=== PATIENT | male | born 1940 | race Caucasian/White ===

== ENCOUNTER 2022-09-14 20:42 | Inpatient (IN) | payer MEDICARE ==
[2022-09-14] MEDS ORDERED: MORPHINE SULFATE 4 MG/ML SYRINGE IVP STA (21:05)
[2022-09-14 21:49] LABS: Basophils % (A) 1 %; Eosinophils # (A) 0.4 k/uL (0-0.7); Eosinophils % (A) 7 %; HCT 39.6 % (39.0-53.0); HGB 13.6 gm/dL (13.0-17.5); Lymphocytes # (A) 0.9 k/uL (1.0-4.8); Lymphocytes % (A) 13 %; MCH 32.3 pg (25.0-35.0); MCHC 34.5 g/dL (31.0-37.0); MCV 93.9 fL (80.0-100.0); Mean Platelet Volume 8.3; Monocytes # (A) 0.3 k/uL (0-1.0); Monocytes % (A) 5 %; Neutrophils # (A) 4.6 k/uL (1.3-7.7); Neutrophils % (A) 72 %; Platelet Count 157 k/uL (150-450); RBC 4.22 m/uL (4.30-5.90); RDW 12.9 % (11.5-15.5); WBC 6.3 k/uL (3.8-10.6)
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
[2022-09-14 21:59] LABS: INR 1.1 (<1.2); Partial Thromboplastin Time 26.9 sec (22.0-30.0); Prothrombin Time 11.4 sec (9.0-12.0)
[2022-09-14 22:03] LABS: Albumin 4.3 g/dL (3.5-5.0); Calcium 9.2 mg/dL (8.4-10.2); Potassium 3.8 mmol/L (3.5-5.1); Total Bilirubin 0.6 mg/dL (0.2-1.3); Total Protein 7.4 g/dL (6.3-8.2)
[2022-09-14] MEDS ORDERED: HYDROmorphone 0.5 MG/0.5 ML SYRINGE IVP STA (22:05)
--- NOTE | 2022-09-14 22:14 | XR ---
EXAMINATION TYPE: XR pelvis AP view DATE OF EXAM: 09/14/2022 COMPARISON: None HISTORY: Fall, pain TECHNIQUE: AP pelvis FINDINGS: There is a fracture through the right femoral neck. Femoral head articulates with the aceta bulum Pelvis otherwise appears intact. Sacroiliac joints and symphysis pubis are normal. Left femoral head articulates with the acetabulum. Vascular calcification is noted. IMPRESSION: 1. Fracture of the right femoral neck.
--- NOTE | 2022-09-14 22:15 | XR ---
EXAMINATION TYPE: XR chest 1V portable DATE OF EXAM: 09/14/2022 COMPARISON: None INDICATION: Trauma, pain TECHNIQUE: Single frontal view of the chest is obtained. Patient is rotated to the right. FINDINGS: The heart size is normal. The pulmonary vasculature is normal. There may be some mild platelike atelectasis at the left base. IMPRESSION: 1. Suggestion of some mild platelike atelectasis left lung base.
--- NOTE | 2022-09-14 22:17 | XR ---
EXAMINATION TYPE: XR femur RT DATE OF EXAM: 09/14/2022 COMPARISON: None HISTORY: Fall, pain TECHNIQUE: 2 view right femur FINDINGS: There is a right femoral neck fracture. Femoral head articulates with the acetabulum. Remai nder of the visualized right femur appears intact. Knee joint space has limited evaluation. IMPRESSION: 1. Right femoral neck fracture.
--- NOTE | 2022-09-14 22:55 | CT ---
EXAMINATION TYPE: CT brain jayleen wo con DATE OF EXAM: 09/14/2022 COMPARISON: None HISTORY: fall CT DLP: 1636 mGycm, Automated exposure control for dose reduction was used. CONTRAST: Patient injected with 0 mL of Isovue 300. CT of the brain is performed utilizing 3 mm thick sections through the posterior fossa and 3 mm thick sections through the remaining calvarium. Study is performed within 24 hours of arrival to the hospital. No abnormal hyperdensity is present to suggest an acute intracranial hemorrhage. No mass lesion is evident. There is mild diminished density within the subcortical limbic region. Series 2034 image 26. Ventricles and sulci are prominent for the patient age. There is prominence of the extra-axial space along the right side. Subdural hygroma may be present. Paranasal sinuses and mastoid air cells within the [id number] are clear. IMPRESSIONS: 1. Several hypodensities within the subcortical limbic region on the left. This is nonspecific. Chron ic ischemic change or developing acute ischemia are within the differential. Correlate with the patie nt's clinical symptoms. CT cervical spine. COMPARISON: None CT of the cervical spine is performed in the axial plane at 2 mm thick sections. Reconstructed image s in the coronal, and sagittal plane are reviewed on the computer. No acute fractures are evident. Note is made of spina bifida occulta of C1 posteriorly. Vertebral body alignment is normal. Mild narrowing of disc height is noted at C3-4. Vertebral body heights are preserved. No spinal canal stenosis is evident. No neural foraminal stenosis is evident. IMPRESSIONS: 1. Mild disc space narrowing C3-4
--- NOTE | 2022-09-14 22:57 | CT ---
EXAMINATION TYPE: CT hip RT wo con DATE OF EXAM: 09/14/2022 COMPARISON: Right hip x-ray 09/14/2022 HISTORY: pain from fall CT DLP: 881 mGycm Automated exposure control for dose reduction was used. Contrast: None Technique: Axial images 3 mm thick sections. Reconstructed images in the coronal and sagittal planes. FINDINGS: There is a fracture of the right femoral neck. There is some rotation of the femur. No additional fra ctures are evident. Pelvis appears intact. Sacroiliac joints appear normal. Note is made of degenerat mickey changes at the L5-S1 disc space. IMPRESSION: 1. RIGHT FEMORAL NECK FRACTURE.
[2022-09-14] MEDS ORDERED: NALOXONE 0.4 MG/ML 1 ML VIAL IV PRN (23:14)
[2022-09-14] MEDS ORDERED: ACETAMINOPHEN TAB 325 MG TAB PO PRN (23:14)
[2022-09-14] MEDS ORDERED: ONDANSETRON 4 MG/2 ML VIAL IVP PRN (23:14)
[2022-09-14] MEDS: SODIUM CHLORIDE 0.9% 1,000 ML IV SCH (23:41)
[2022-09-14] MEDS: HYDROmorphone 1 MG/ML 1 ML SYRINGE IVP PRN (23:41)
[2022-09-15] MEDS: HYDROmorphone 1 MG/ML 1 ML SYRINGE IVP PRN ×3 (02:04→09:02)
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
[2022-09-15] MEDS ORDERED: TRANEXAMIC ACID IN NACL,ISO-OS 1,000 MG in SALINE 1 100ML.BAG IVPB PRN ×2 (05:00)
[2022-09-15 06:21] LABS: Glucose,Whole Blood 120 mg/dL (70-110)
--- NOTE | 2022-09-15 09:18 | P.HPOR ---
History of Present Illness H&P Date: 09/15/22 The patient is a very pleasant 82-year-old male who is admitted under my care with a right hip fracture. The patient has multiple medical problems including atrial fibrillation and COPD. The patient states that he lost his balance yesterday and fell onto his right side. He had immediate pain in the right hip and unable to ambulate. He was seen in the emergency department where x-rays showed a displaced femoral neck fracture. At the time of my evaluation this morning the patient is complaining of isolated pain in his right hip and spasms down into Thigh. At baseline the patient uses a walker and lives with his son-in-law. Past Medical History Past Medical History: Atrial Fibrillation, Blood Disorder, COPD, Deep Vein Thrombosis (DVT), Myocardial Infarction ([place]), Sleep Apnea/CPAP/BIPAP Additional Past Medical History / Comment(s): hernia Last Myocardial Infarction Date:: late 60s History of Any Multi-Drug Resistant Organisms: None Reported Past Surgical History: Ear Surgery, Heart Catheterization Past Anesthesia/Blood Transfusion Reactions: No Reported Reaction Smoking Status: Former smoker Past Alcohol Use History: Occasional Past Drug Use History: Marijuana - Past Family History Father Family Medical History: Hyperlipidemia Medications and Allergies Allergies Allergy/AdvReac Type Severity Reaction Status Date / Time No Known Allergies Allergy Verified 09/14/22 21:13 Physical Examination The patient is resting comfortably in his bed. He is alert and able to answer questions. His head is normocephalic and atraumatic. His abdomen is obese and nontender. He demonstrates nonlabored breathing with symmetric chest expansion. Both upper extremities are without deformity or nontender. The left lower extremity is nontender and without deformity. A focused exam of the right lower Was conducted. On inspection the leg is shortened and externally rotated. There are no skin lesions or scars over the anterior aspect of the right hip. The thigh and calf are soft. There is pain with any attempted passive range of motion of the right hip. There is no tenderness in the knee or foot. Sensation is intact to light touch in the right foot. Results X-rays of the pelvis and right hip show a displaced subcapital femoral neck fracture. - Labs Labs: Abnormal Lab Results - Last 24 Hours (Table) 09/14/22 09/14/22 09/15/22 Range/Units 21:16 21:25 06:20 RBC 4.22 L (4.30-5.90) m/uL Lymphocytes # 0.9 L (1.0-4.8) k/uL BUN 31 H (9-20) mg/dL Creatinine 1.86 H (0.66-1.25) mg/dL POC Glucose (mg/dL) 120 H (70-110) mg/dL H & H 09/14/22 Range/Units 21:25 Hgb 13.6 (13.0-17.5) gm/dL Hct 39.6 (39.0-53.0) % Coagulation 09/14/22 Range/Units 21:16 INR 1.1 (<1.2) Result Diagrams: 09/14/22 21:25 09/14/22 21:16 Assessment and Plan Assessment: Displaced right subcapital femoral neck fracture COPD Atrial fibrillation Plan: A long discussion with this patient and his injury and treatment. He has a displaced subcapital femoral neck fracture and my recommendation was a cemented hip hemiarthroplasty. We discussed that this would allow early mobilization and hopefully return to his preoperative baseline and to try status. We discussed the potential risks and complications of this at length of which he is aware. We will plan on surgery later this afternoon as he is already cleared by internal medicine. He is to remain nothing by mouth and bedrest until surgery. Time with Patient: Greater than 30
[2022-09-15] MEDS ORDERED: ROPIVACAINE/EPI/CLONIDINE/KET 50 ML SYRINGE MISCELLANE PRN (09:53)
[2022-09-15] MEDS ORDERED: TRANEXAMIC ACID IN NACL,ISO-OS 100 ML IVPB ONE (09:53)
[2022-09-15] MEDS ORDERED: TRANEXAMIC ACID 1,000 MG in SODIUM CHLORIDE 0.9% 100 ML IVPB ONE (09:54)
--- NOTE | 2022-09-15 13:25 | P.CNNES ---
History of Present Illness Consult date: 09/15/22 Requesting physician: Parth Campuzano Reason for Consult: rule out ischemic changes, acute vs chronic History of Present Illness: This is an 82-year-old gentleman with history of strokes, atrial fibrillation on Xarelto, COPD, obstructive sleep apnea on CPAP who presented emergency department department because of fall. Seems that yesterday the patient was standing on the golf cart and he stated that he fell on event and fell backward. He does not believe he lost consciousness. He he thinks he will he wanted to turn to the left while on the cart but he felt possibly his legs were weak and he fell backwards and as a result has had hitting his right hip. Patient denies any history of seizures. Again he did not feel he lost consciousness but he was not sure. He did have history of strokes in the past and he had a stroke in 1970s and about 5 years ago. As a result will fall patient had the right femoral neck fracture. Some of the workup to this hospital visit consisted of: Initial serum glucose is 99. Creatinine is 1.86. CT of the head is reported as several hypodensity within the subcortical limp region of the left. This is nonspecific. Chronic ischemic changes or developing acute ischemia are within differential. Correlate with the patient's clinical symptoms. I personally reviewed the CT of the head and the patient has mild hypodensity over left ear insular region and seems suspicious for acute to subacute stroke. CT cervical spine was reported as mild disc space narrowing at C3-C4. Review of Systems Review of system: The 12 point system was reviewed and apparent positive and negative per HPI. Past Medical History Past Medical History: Atrial Fibrillation, Blood Disorder, COPD, Deep Vein Thrombosis (DVT), Myocardial Infarction ([place]), Sleep Apnea/CPAP/BIPAP Additional Past Medical History / Comment(s): hernia Last Myocardial Infarction Date:: late 60s History of Any Multi-Drug Resistant Organisms: None Reported Past Surgical History: Ear Surgery, Heart Catheterization Past Anesthesia/Blood Transfusion Reactions: No Reported Reaction Smoking Status: Former smoker Past Alcohol Use History: Occasional Past Drug Use History: Marijuana - Past Family History Father Family Medical History: Hyperlipidemia Medications and Allergies Allergies Allergy/AdvReac Type Severity Reaction Status Date / Time No Known Allergies Allergy Verified 09/14/22 21:13 Physical Examination - Vital Signs Vital Signs: Vital Signs Temp Pulse Pulse Resp BP BP Pulse Ox 09/15/22 08:31 91 L 09/15/22 07:15 98.6 F 56 L 18 102/61 96 09/15/22 01:52 97.7 F 71 20 156/68 97 09/15/22 00:36 97.9 F 76 24 160/84 95 09/14/22 20:48 98.2 F 70 22 158/82 100 Intake and Output 09/14/22 09/15/22 09/15/22 22:59 06:59 14:59 Intake Total 525 Output Total 300 Balance 225 Intake: Intake, IV Titration 525 Amount Sodium Chloride 0.9% 1, 525 000 ml @ 75 mls/hr IV . [id number] [facility] Rx#:[id number] Output: Urine 300 Uretheral (Henning) 300 Other: Weight 94.347 kg 94.347 kg GENERAL: The patient is lying in bed and is not in acute distress. CHEST: No edema in extremities. LUNG: Is on CPAP machine. Not labored breathing. NEUROLOGICAL: Higher mental function: The patient is awake, alert, oriented to self, place and time. Patient is following commands. No aphasia and no neglect. Cranial nerves: The pupils are round, equal and reactive to light. Visual mag[place] are full to confrontation throughout. Extraocular movement is intact no nystagmus is noted. Facial sensation is normal to touch throughout. The facial strength is normal throughout. Hearing is mildly decreasedl bilaterally to hand rub. Tongue is midline and moved [id number] without any difficulty. No dysa rthria is noted. Shoulder shrug is normal bilaterally. Motor: The strength is 5 over 5 throughout. uppers while left is unable to assess because of pain especially right lower and has fracture right hip region. But is wiggling left toes. Normal tone and bulk. Cerebellum: Normal finger to nose bilaterally. Sensation: Sensation is normal to touch throughout. Reflexes (right/left): 2+ uppers but lowers unable to assess because of pain. Plantars is deferred because of his wishes due to pain. Results - Laboratory Findings CBC and BMP: 09/14/22 21:25 09/14/22 21:16 Abnormal Lab Findings: Abnormal Labs 09/14/22 09/14/22 09/15/22 21:16 21:25 06:20 RBC 4.22 L Lymphocytes # 0.9 L BUN 31 H Creatinine 1.86 H POC Glucose (mg/dL) 120 H Assessment and Plan Assessment: This is an 82-year-old gentleman who fell off of the golf cart and hit his head as a result had right hip fracture. He though prior to fall his legs were possibly weak and fell backward and felt was awake but unsure if truly did not lose consciousness. Hypodesity over the left insular cortex is concerning for acute to subacute stroke Fall and unsure if he had a stroke or due to other causes. Traumatic right femoral neck fracture from fall. History of strokes History of Atrial fibrillation and is on Xarelto History of COPD History of CHARANJIT and is on CPAP Plan: I ordered MRI of the brain without to rule out acute or subacute ischemia. Ordered the carotid duplex 2-D echo, lipid panel. Patient's goal for surgery and his anticoagulation is held. Consider aspirin 81 mg. Recommend the Lipitor 40 milligrams daily at bedtime for secondary stroke prophylaxis. Ordered routine EEG to rule out any underlying seizure or epileptiform discharges Placed him on every 4 hours neuro checks Placed on cardiac monitoring Consulted PT and OT Orthopedic surgery team is on board We'll defer the rest of the medical medical Department team For DVT prophylaxis use SCDs for now since he is going for surgery. Of a anticoagulation the is to be avoided because of the surgery consider subcu heparin 5000 units every 12 hours Plan discussed with the patient and the N.P. from primary team Thank you for the consultation Time with Patient: Greater than 30
[2022-09-15] MEDS: SODIUM CHLORIDE 0.9% 1,000 ML IV SCH (13:44)
[2022-09-15] MEDS ORDERED: IV FLUID CONTINUATION 1,000 ML IV ONE (14:00)
[2022-09-15] MEDS ORDERED: MIDAZOLAM 2 MG/2 ML VIAL IVP ONE (14:53)
[2022-09-15] MEDS ORDERED: ROCURONIUM 10 MG/ML (5 ML VIAL) IV ONE (14:55)
[2022-09-15] MEDS ORDERED: LIDOCAINE 4% LTA KIT (4 ML) TOPICAL ONE (14:55)
[2022-09-15] MEDS ORDERED: PROPOFOL 10 MG/ML 20 ML VIAL IV ONE (14:55)
[2022-09-15] MEDS ORDERED: fentaNYL (PF) 50 MCG/ML 2 ML AMP ONE (14:55)
[2022-09-15] MEDS ORDERED: NEOSTIGMINE 1 MG/ML 10 ML VIAL ONE (14:55)
[2022-09-15] MEDS ORDERED: SUCCINYLCHOLINE CHLORIDE 200 MG/10 ML VIAL IV ONE (14:55)
[2022-09-15] MEDS ORDERED: ROPIVACAINE 5 MG/ML 30 ML VIAL ONE (14:55)
[2022-09-15] MEDS ORDERED: DEXAMETHASONE SOD PHOSPHATE 4 MG/ML 1 ML VIAL ONE (14:55)
[2022-09-15] MEDS ORDERED: PHENYLEPHRINE-0.9% NACL SYG 1,000 MCG/10 ML SYRINGE ONE (14:55)
[2022-09-15] MEDS ORDERED: TRANEXAMIC ACID IN NACL,ISO-OS 1,000 MG/100 ML BAG ONE (14:55)
[2022-09-15] MEDS ORDERED: GLYCOPYRROLATE 0.2 MG/ML 2 ML VIAL ONE (14:55)
--- NOTE | 2022-09-15 14:57 | P.ANPRN ---
Procedure Note - Anesthesia - Nerve Block Performed Right Tirso Single Time Out Performed: Yes Date of Procedure: 09/15/22 Procedure Start Time: 14:42 Procedure Stop Time: 14:52 Location of Patient: PreOp Indication: Acute Post-Operative Pain, Requested by Surgeon Sedation Type: Sedate with meaningful contact maintained Preparation: Sterile Prep, Sterile Dressing Position: Supine Catheter: None Needle Types: Facet Needle Gauge: 20 Ultrasound used to visualize needle placement: Yes Ultrasound used to observe medication spread: Yes Injectate: 0.5% Ropivacaine (see comment for volume) (30 ml + decadron 4 mg) Blood Aspirated: No Pain Paresthesia on Injection Noted: No Resistance on Injection: Normal Image Stored and Saved: Yes Events: Uneventful and Well Tolerated
--- NOTE | 2022-09-15 15:42 | P.PN ---
Subjective Progress Note Date: 09/15/22 Hospital course: Patient is a very pleasant 82-year-old male with a past medical history of CAD with stent, atrial fibrillation on anticoagulation with Eliquis, history of CVA, COPD, and obstructive sleep apnea CPAP dependent nightly. He presented to the emergency department secondary to fall from golf cart. Patient was camping with friends and riding a golf cart when he reportedly fell out landing on his right hip and hitting his head. Patient denies having any loss of consciousness. He underwent full evaluation in the emergency department. Labs completed and reviewed. CBC unremarkable. Coagulation profile normal findings. BMP revealing elevated renal function with BUN of 31, creatinine 1.86, and GFR of 33 with unknown baseline is no previous labs for comparison. Liver profile was unremarkable. EKG completed showing normal sinus rhythm at 68 bpm with a right bundle branch block upon personal review and interpretation, no previous EKGs available for comparison. CT head completed showing several hypodensities within the subcortical limbic region on the left unclear if this is chronic ischemic changes or developing acute ischemia. CT cervical spine also completed revealing mild disc space narrowing between C3 and C4 otherwise negative for acute fractures or deformity. Chest x-ray was completed and radiology report reviewed stating mild platelike atelectasis at left lung base. X-ray pelvis and right femur were completed reporting a fracture of right femoral neck. CT right hip completed confirming right femoral neck fracture with no other acute abnorm alities reported. Physical exam: Patient seen and fully evaluated at bedside this morning. Patient having jerking myoclonic motions noted in upper extremities and right leg, patient reports this is new since his fall. Patient also unclear as to events leading up to how he fell off the golf cart. Patient states his leg would not move. It is unclear if patient was experiencing numbness or focal weakness prior to this. Upon reviewing CT head there concerns for possible subacute/acute ischemia. Called and discussed these findings with neurologist and neurology consult placed. Also discussed with orthopedic surgeon as patient is still medically o ptimized to undergo urgent surgery for right displaced femoral neck fracture. Patient is high risk for surgery Secondary to his advanced COPD and cardiac history, patient being high risk remains unchanged whether or not this is an acute versus subacute stroke and patient would like to continue with treatment plan and undergo surgical repair. Vital signs reviewed and stable. General: Nontoxic, no distress and appears stated age. Derm: Skin warm and dry, normal coloration for ethnicity. Head: Atraumatic, normocephalic and symmetric. Eyes: EOMs intact, no lid lag, and anicteric sclera Mouth: no lip lesions, mucus membranes moist Cardiovascular: regular rate and rhythm with normal S1S2, systolicmurmur, positive posterior tibial pulses bilaterally, and cap refill < 2 seconds. Lungs: Respirations even, regular, and unlabored on room air. Lungs diminished, no rhonchi, no rales, no wheezing, and no accessory muscle usage. Abdominal: soft, nontender to palpation, no guarding, no appreciable organomegaly Ext: Movement and sensation intact. No gross muscle atrophy, no edema, no cont ractures. Right leg slightly shortened and externally rotated Neuro: Speech clear, face symmetrical and CN II-XII grossly intact with no noted focal neuro deficits Psych: Alert and oriented to person, place, time, and situation. Appropriate and pleasant affect. Assessment and Plan of Care: Traumatic fall Right femoral neck fracture Myoclonic jerking Incidental finding on imaging, CT brain revealing several hypodensities, rule ou t acute versus subacute CVA -CT head completed and radiologist report reviewed showing several hypodensities within the subcortical limbic region on the left unclear if this is chronic ischemic changes or developing acute ischemia. -Patient having jerking myoclonic motions noted in upper extremities and right leg, patient reports this is new since his fall. Patient also unclear as to events leading up to how he fell off the golf cart. Patient states his leg would not move. It is unclear if patient was experiencing numbness or focal weakness prior to this. As stated above, CT head showing concerns for possible subacute/acute ischemia. -Neurology consulted secondary to concerns of new myoclonic jerking motions and possible acute/subacute stroke. It is unclear how patient fell off of golf cart or whether he was previously experiencing any numbness/weakness resulting in this fall. -Orthopedic surgeon taking patient for femoral neck fracture repair later today. Discussed with orthopedic surgeon that patient is still medically optimized to undergo urgent surgery for right displaced femoral neck fracture. Patient is high risk for surgery secondary to his advanced COPD and cardiac history and high risk status remains unchanged whether or not this is an acute versus subacute stroke and patient would like to continue with treatment plan to undergo surgical repair despite increased surgical risks showing above average risk of serious complication or . -Neuro checks every 4 hours. -Patient to continue with daily atorvastatin and recommend daily aspirin once cleared by primary admitting orthopedic surgery team. -Fall precautions -Symptomatic care and pain management. Acute kidney injury, presumably acute versus chronic kidney disease -BMP revealing elevated renal function with BUN 31, creatinine 1.86, and GFR of 33. No previous labs available for comparison as patient is from out of town and camping at local campground. -Patient is on chlorthalidone, will hold at this time. -Patient to continue with gentle IV fluid hydration with lactated Ringer's at 100 mL per hour. -Order placed for repeat morning BMP and we will follow up closely with renal function and place additional orders based upon these results. CAD with stent, Atrial fibrillation on anticoagulation with Eliquis -Patient to resume daily aspirin and Eliquis once cleared by primary admitting o rthopedic surgery team. -Patient otherwise to continue with daily cardiac medication regimen consisting of amlodipine 10 mg daily, Lipitor 40 mg daily, and metoprolol 100 mg daily. -Chlorthalidone to be held secondary to unclear if acute kidney injury versus chronic kidney disease. COPD and obstructive sleep apnea CPAP dependent nightly -Patient to continue with Ventolin inhaler 4 times daily as needed for shortness of breath and/or wheezing and Trelegy Ellipta inhaler daily. -Order placed for CPAP nightly and when napping. -Order placed for incentive spirometry, encourage use 10-15 times hourly while awake. BPH -Resume Flomax 0.4 mg daily. Monitor for postvoid residuals. CODE STATUS: Full code DVT prophylaxis: SCDs, resume Eliquis once cleared by primary admitting orthopedic surgery team. Discussed with: patient, RN, neurologist, and orthopedic surgeon Anticipated discharge date: clinical course to determine Anticipated discharge place: home Patient was seen independently by Nurse Pracitioner. This document was prepared using [employer] dictation software. Please allow for errors in director e learning, while rare they do occur. Parth Campuzano NP rendered care for this patient independently, reviewed the findings and plan as documented in the note above. I did not physically speak with or examine the patient on this date. Objective - Vital Signs Vital signs: Vital Signs Temp 98.6 F 09/15/22 07:15 Pulse 56 L 09/15/22 07:15 Resp 18 09/15/22 07:15 BP 102/61 09/15/22 07:15 Pulse Ox 91 L 09/15/22 08:31 FiO2 Intake & Output 09/14/22 09/15/22 09/15/22 18:59 06:59 18:59 Intake Total 525 Output Total 300 Balance 225 Weight 94.347 kg Intake: Intake, IV Titration 525 Amount Sodium Chloride 0.9% 1, 525 000 ml @ 75 mls/hr IV . [id number] [facility] Rx#:[id number] Output: Urine 300 Uretheral (Henning) 300 - Labs CBC & Chem 7: 09/15/22 18:32 09/17/22 11:00 Labs: Abnormal Lab Results - Last 24 Hours (Table) 09/14/22 09/14/22 09/15/22 Range/Units 21:16 21:25 06:20 RBC 4.22 L (4.30-5.90) m/uL Lymphocytes # 0.9 L (1.0-4.8) k/uL BUN 31 H (9-20) mg/dL Creatinine 1.86 H (0.66-1.25) mg/dL POC Glucose (mg/dL) 120 H (70-110) mg/dL
[2022-09-15] MEDS ORDERED: LACTATED RINGERS 1,000 ML IV ONE (16:16)
[2022-09-15] MEDS ORDERED: hydrOXYzine pamoate 25 MG CAP PO PRN (16:52)
--- NOTE | 2022-09-15 16:52 | P.OP ---
Date of Procedure: 09/15/22 Preoperative Diagnosis: 1. Right displaced subcapital femoral neck fracture 2. BMI 34.6 3. Atrial fibrillation on Xarelto 4. COPD 5. History of stroke Postoperative Diagnosis: Same Procedure(s) Performed: Right direct anterior total hip arthroplasty Implants: Madeleine cemented Accolade C size #3 high offset stem, bipolar head (28 mm -4mm inner diameter, 48 mm outer diameter) Anesthesia: MAMON Surgeon: Josh Madrigal Spar Finisher #1: Vito Perez Estimated Blood Loss (ml): 200 Pathology: none sent Condition: stable Disposition: PACU Indications for Procedure: I met with the patient and their family to discuss treatment options. The patient has a displaced femoral neck fracture and based on their age, activity level, and medical comorbidities I recommended a hip hemiarthroplasty to facilitate early mobilization. My recommendation was to perform the hemiarthroplasty through a direct anterior approach to help lower the risk of dislocation and improve postoperative recovery and use cemented fixation of the femoral component to reduce the risk of fracture and postoperative thigh pain. We discussed the potential risks and complications of a hemiarthroplasty for displaced femoral neck fracture at length. Risks discussed include are certainly not limited to risks from anesthesia, superficial infection requiring local wound care and possibly surgical debridement, deep periprosthetic joint infection and the treatment for this, damage to local blood vessels or nerves particularly the lateral femoral cutaneous nerve, intraoperative fracture, postoperative periprosthetic fracture, leg length discrepancy, hip dislocation, aseptic loosening, groin pain, thigh pain, progression of arthritis requiring conversion to total hip arthroplasty, complications related to cementing the component, an inability to regain preinjury level of function, DVT, PE, acute coronary event, stroke, pneumonia, urinary tract infection, failure to thrive, and possibly . The patient and their family understand that while these are the most common complications other less common complications are possible. They provided their verbal and written consent to go forward with surgery. Operative Findings: Displaced subcapital femoral neck fracture Description of Procedure: The patient was identified in the preoperative holding area and the correct hip was marked with my initials. I reviewed the procedure and consent with the patient. All of their questions were answered. The patient was then brought back into the operating room by anesthesia. While on the [facility] anesthesia was administered by the anesthesia team. Preoperative antibiotics and tranexamic acid were also given. After the patient was under anesthesia I examined their ankles to determine their preoperative leg length discrepancy. The skin over the anterior aspect of the hip was shaved to remove hair over the site of planned incision. Both feet and ankles were padded with webril and boots for the [place] were applied. The patient was then carefully transferred onto the [place] table. A perineal post was immediately placed. The arms were placed on arm holders and were well-padded. Both boots were secured to the spars on the [place] table. The patient was positioned so that the pelvis was centered over the post. Nonsterile drapes were applied. A timeout was performed identifying the correct patient, operative extremity, and procedure. At this point fluoroscopy was brought in to take preoperative images of the pelvis and operative hip. A metallic bar was used to create a bi-ischial line for use as a reference to leg length adjustments during the procedure. Global offset was also measured on both the operative and nonoperative leg. Fluoroscopy was then brought out and a pre-scrub using a chlorhexidine scrub brush was performed. The operative limb was then prepped and draped in the standard sterile fashion. An anterior longitudinal incision was made lateral and distal to the ASIS. The skin and subcutaneous tissues were incised sharply. The underlying tensor fascia was identified and incised in its midportion. The fascia was dissected free from the underlying muscle and the muscle belly was retracted. A blunt tipped cobra retractor was placed over the superior neck under the muscle fibers of the gluteus minimus. The deep enveloping fascia of the tensor was incised. The anterior leash of vessels were then identified and cauterized. The fascia between the rectus and the capsule was then incised and the pre-capsular fat was excised. A second Cobra was placed inferior to the neck. The interval between the rectus and iliocapsularis and the hip capsule was developed and a retractor was placed carefully over the anterior rim of the acetabulum. A T-shaped anterior capsulotomy was performed. A hemarthrosis consistent with a femoral neck fracture was identified. The superior capsular leaflet was left in place in the inferior capsular flap was excised. The Cobra retractors were placed intracapsularly. A displaced femoral neck fracture was then identified. We then made a femoral neck osteotomy according to preoperative and intraoperative templating and confirmed the level of the osteotomy using fluoroscopic imaging. The femoral head was removed, passed off to the back table, and sized. The superior capsular flap was excised. On inspection of the acetabulum there were minimal degenerative changes with intact cartilage. Attention was then turned to the femur. The remnant dorsal lateral capsule was excised. The short external rotators were visible and protected. A bone hook was used to confirm appropriate translation of the trochanter away from the acetabulum. The leg was then extended and adducted and the bone hook was used to elevate the femur for broaching. A box osteotome and blunt tipped canal sound was then utilized to gain access to the femoral canal. We then sequentially broached the femur in appropriate anteversion until torsional stability was achieved and the implant was felt to have reached the appropriate size to allow trialing. The neck cut was brought flush to the trial broach with a calcar planar. A trial neck and head were then placed onto the broach and the hip was atraumatically reduced under direct visualization. External rotation to 90 was performed to assess stability. Fluoroscopy was brought in. An AP and lateral fluoroscopic image of the proximal femur was obtained to assess position and fill of the trial broach. An AP of the pelvis was then obtained and matched to the preoperative image taken. A bi-ischial bar was then placed and measurements were taken to assess changes in length and offset. The hip was then carefully dislocated, the proximal femur was exposed, and the trial implants were removed. The proximal femur was then prepared for cementing. The canal was thoroughly irrigated with pulsatile lavage to remove blood and marrow contents. A cement restrictor was placed to a depth just distal to the tip of the final implant. Epinephrine-soaked gauze was then packed into the proximal femur. 2 bags of cement with antibiotics were then mixed using a centrifuge and placed into a cement gun. Anesthesia was notified that cementing was about to commence to make sure the patient was appropriately ventilated and hydrated. Once the cement had reached appropriate consistency, the cement gun was used to fill the canal in a retrograde fashion starting at the restrictor. Cement was then pressurized into the canal with a blue tipped studio producer. The stem was then carefully introduced into the cement taking care to guide the implant into appropriate version. The stem was held in position until the cement had fully set. All extra cement was removed while the cement was hardening. The trunnion was cleansed and the final head was tapped into place to engage the Mtz taper. The acetabulum was irrigated and visualized to be free of debris. The hip was carefully reduced. Stability was checked clinically with external rotation to 90 and there was no evidence of instability. Final fluoroscopic images were taken. The wound was then thoroughly irrigated with Irrisept. 3 L of sterile saline was irrigated through the wound using pulsatile lavage. Local anesthetic cocktail was injected into the soft tissues around the surgical field. A deep drain was placed. The wound was then closed in layers. A sterile dressing was placed over the surgical incision and drain site. The drapes were taken down and the patient was carefully transferred off of the [place] table. Following removal of the boots the leg lengths felt acceptable. The patient was then taken to recovery room having tolerated the procedure well. Vito Perez PA-C was required as a skilled assistant field hockey coach for patient positioning, surgical exposure, retraction, placement of implants, and closure of the surgical wound. PLAN: The patient can weight-bear as tolerated on the operative extremity. 2 doses of postoperative antibiotics. DVT prophylaxis can resume Xarelto. Physical therapy for gait training. Discontinue drain postoperative day #1 if output is less than 100 mL per shift.
[2022-09-15] MEDS ORDERED: ALBUTEROL NEBULIZED 2.5 MG/3 ML INHALATION PRN (16:53)
--- NOTE | 2022-09-15 17:01 | FL ---
Intraoperative/procedural fluoroscopic services were provided. Total fluoroscopy time is 23 seconds w ith a total of 7 submitted images to PACS. Please see the operative/procedural note for further detbrandon ls. DAP: [phone]
--- NOTE | 2022-09-15 17:24 | XR ---
EXAMINATION TYPE: XR Hip Limited RT DATE OF EXAM: 09/15/2022 5:15 PM INDICATION: Patient age:Male; 82 years old; Reason for study: s/p surgery; [facility]. COMPARISON: 09/14/2022 TECHNIQUE: The right hip was examined in the frontal and lateral projections and a AP pelvis. FINDINGS: Post arthroplasty changes, hardware is intact, alignment is appropriate. No evidence of fra cture. Postoperative changes of the soft tissues with subcutaneous gas. No evidence of any acute osse ous pathology or joint dislocation. Atherosclerosis of the arterial vasculature. IMPRESSION: Hip arthroplasty with hardware intact and in appropriate alignment. No acute fracture.
[2022-09-15] MEDS: LACTATED RINGERS 1,000 ML IV SCH ×2 (18:45→23:13)
[2022-09-15] MEDS: ASPIRIN 81 MG PO SCH (18:46)
[2022-09-15] MEDS: APIXABAN 2.5 MG TABLET PO SCH (18:46)
[2022-09-15] MEDS: TAMSULOSIN 0.4 MG CAP.ER.24H PO SCH (18:46)
[2022-09-15 19:15] LABS: Basophils % (A) 0 %; Eosinophils # (A) 0.2 k/uL (0-0.7); Eosinophils % (A) 2 %; HCT 34.1 % (39.0-53.0); HGB 11.7 gm/dL (13.0-17.5); Lymphocytes # (A) 0.3 k/uL (1.0-4.8); Lymphocytes % (A) 4 %; MCH 32.8 pg (25.0-35.0); MCHC 34.4 g/dL (31.0-37.0); MCV 95.3 fL (80.0-100.0); Monocytes # (A) 0.2 k/uL (0-1.0); Monocytes % (A) 2 %; Neutrophils # (A) 7.7 k/uL (1.3-7.7); Neutrophils % (A) 92 %; Platelet Count 155 k/uL (150-450); RBC 3.58 m/uL (4.30-5.90); WBC 8.4 k/uL (3.8-10.6)
--- NOTE | 2022-09-15 21:34 | US ---
EXAMINATION TYPE: US carotid duplex BILAT DATE OF EXAM: 09/15/2022 Exam done portable COMPARISON: NONE CLINICAL INDICATION: Male, 82 years old with history of stroke; TECHNIQUE: Carotid duplex ultrasound examination. Indirect Doppler criteria was utilized. FINDINGS: EXAM MEASUREMENTS: RIGHT: Peak Systolic Velocity (PSV) cm/sec ----- Right CCA: 100.0 ----- Right ICA: 104.0 ----- Right ECA: 143.0 ICA/CCA ratio: 1.0 RIGHT: End Diastole cm/sec ----- Right CCA: 12.3 ----- Right ICA: 25.3 ----- Right ECA: 0.0 LEFT: Peak Systolic Velocity (PSV) cm/sec ----- Left CCA: 94.5 ----- Left ICA: 172.0 ----- Left ECA: 150.0 ICA/CCA ratio: 1.8 LEFT: End Diastole cm/sec ----- Left CCA: 13.4 ----- Left ICA: 25.2 ----- Left ECA: 0.0 VERTEBRALS (direction of flow): Right Vertebral: Antegrade Left Vertebral: Antegrade Rhythm: Normal No significant stenosis. IMPRESSION: No sonographic evidence for hemodynamically significant stenosis of the carotid arteries bilaterally.
[2022-09-15] MEDS: SENNOSIDES-DOCUSATE SODIUM 1 EACH TAB PO SCH (21:46)
[2022-09-15 23:46] LABS: Chol/HDL Ratio 3.57 Ratio; LDL Cholesterol,Calculated 67.4 mg/dL (0.0-131.0)
[2022-09-16] MEDS: BENZOCAINE/MENTHOL LOZENG 1 EACH LOZENGE MUCOUS MEM PRN ×2 (02:08→20:47)
[2022-09-16] MEDS: SODIUM CHLORIDE 0.9% 1,000 ML IV SCH (03:33)
[2022-09-16] MEDS: APIXABAN 2.5 MG TABLET PO SCH ×2 (06:02→17:27)
[2022-09-16 08:28] LABS: Calcium 8.1 mg/dL (8.4-10.2); Magnesium 1.6 mg/dL (1.6-2.3); Potassium 3.8 mmol/L (3.5-5.1)
[2022-09-16] MEDS: IPRATROPIUM 0.5 MG/2.5 ML NEBU INHALATION SCH ×4 (08:41→20:24)
[2022-09-16] MEDS: SERTRALINE 50 MG TAB PO SCH (09:34)
[2022-09-16] MEDS: HYDROcodone/APAP 5-325MG 1 EACH TAB PO PRN (09:34)
[2022-09-16] MEDS: METOPROLOL SUCCINATE (ER) 100 MG TAB.ER.24H PO SCH (09:34)
[2022-09-16] MEDS: FOLIC ACID 1 MG TAB PO SCH (09:34)
[2022-09-16] MEDS: ATORVASTATIN 40 MG TAB PO SCH (09:34)
[2022-09-16] MEDS: TAMSULOSIN 0.4 MG CAP.ER.24H PO SCH (09:34)
[2022-09-16] MEDS: PANTOPRAZOLE 40 MG TABLET PO SCH (09:34)
[2022-09-16] MEDS: amLODIPine 10 MG TAB PO SCH (09:34)
[2022-09-16] MEDS: ASPIRIN 81 MG PO SCH (09:34)
--- NOTE | 2022-09-16 10:21 | P.PN ---
Subjective Patient doing much better this morning. The pain is controlled and he rates 4 out of 10 at rest. He has not yet been up to chair or out of bed. Objective - Vital Signs Vital signs: Vital Signs Temp 97.9 F 09/15/22 20:00 Pulse 76 09/16/22 08:54 Resp 16 09/16/22 02:00 BP 119/56 09/16/22 02:00 Pulse Ox 94 L 09/16/22 02:00 FiO2 Intake & Output 09/15/22 09/16/22 09/16/22 18:59 06:59 18:59 Intake Total 950 1080 240 Output Total 800 400 Balance 150 680 240 Intake: IV 950 Oral 1080 240 Output: Urine 600 400 Estimated Blood Loss 200 Other: Voiding Method Indwelling Catheter - Exam Patient is resting comfortably in bed. He is alert and able to answer questi ons. On inspection of the right leg his dressings are intact with no drainage. His thigh is soft. His Hemovac drain was removed without difficulty. Femoral nerve function is intact. Distally he is able to actively plantarflex and dorsal flex his ankle and his toes. - Labs CBC & Chem 7: 09/15/22 18:32 09/16/22 06:20 Labs: Abnormal Lab Results - Last 24 Hours (Table) 09/15/22 09/15/22 09/16/22 Range/Units 13:37 18:32 06:20 RBC 3.58 L (4.30-5.90) m/uL Hgb 11.7 L (13.0-17.5) gm/dL Hct 34.1 L (39.0-53.0) % Lymphocytes # 0.3 L (1.0-4.8) k/uL Sodium 136 L (137-145) mmol/L BUN 29 H (9-20) mg/dL Creatinine 1.87 H (0.66-1.25) mg/dL Glucose 138 H (74-99) mg/dL Calcium 8.1 L (8.4-10.2) mg/dL HDL Cholesterol 37.80 L (40.00-60.00) mg/dL Assessment and Plan Assessment: Postoperative day #1 status post right direct anterior hip hemiarthroplasty, doing well Plan: 1. Weightbearing as tolerated right lower extremity, no hip percussion's, up with assistance. 2. 2 doses postoperative antibiotics 3. DVT prophylaxis with Eliquis 4. I would like the patient to mobilize with physical therapy if possible 5. Internal medicine for preoperative medical management 6. Discharge planning in place, the patient would like and will likely need discharge to a subacute nursing facility which will be arranged.
--- NOTE | 2022-09-16 12:15 | P.PN ---
Subjective Progress Note Date: 09/16/22 The patient seen at bedside and he feels he is doing about the same. Today the patient was taken to the OR for his right displaced femoral neck fracture and had a total hip arthroplasty. Objective - Vital Signs Vital signs: Vital Signs Temp 97.7 F 09/16/22 09:30 Pulse 65 09/16/22 11:52 Resp 18 09/16/22 09:30 BP 153/74 09/16/22 09:30 Pulse Ox 97 09/16/22 11:54 FiO2 Intake & Output 09/15/22 09/16/22 09/16/22 18:59 06:59 18:59 Intake Total 950 1080 240 Output Total 800 400 Balance 150 680 240 Intake: IV 950 Oral 1080 240 Output: Urine 600 400 Estimated Blood Loss 200 Other: Voiding Method Indwelling Catheter Indwelling Catheter - Exam Gen.: He is lying in bed and not acute distress Neuro: Patient is awake alert oriented to self place and time. His following simple commands. No aphasia and no neglect Cranial nerves: Pupils are round equal and reactive to light. Visual mag[place] are full. Extraocular movements intact. No facial weakness. No dysarthria. Motor: Strength is 5 out of 5 throughout upper. Left lower he briefly is able to lift above gravity right lower he just had the surgery and assessment is limited. Sensory is normal to touch throughout the upper. Cerebellar: Has dysmetria of bilateral upper with finger to nose. Some of the workup to this hospital visit consisted of: Lipid panel is a triglyceride 1.9, cholesterol 135, LDL 67 and HDL is 37 Carotid duplex: No significant evidence for hemodynamically significant stenosis of carotid artery bilaterally. CT of the head is reported as several hypodensity within the subcortical limp region of the left. This is nonspecific. Chronic ischemic changes or developing acute ischemia are within differential. Correlate with the patient's clinical symptoms. I personally reviewed the CT of the head and the patient has mild hypodensity over left ear insular region and seems suspicious for acute to subacute stroke. CT cervical spine was reported as mild disc space narrowing at C3-C4. - Labs CBC & Chem 7: 09/15/22 18:32 09/16/22 06:20 Labs: Abnormal Lab Results - Last 24 Hours (Table) 09/15/22 09/15/22 09/16/22 Range/Units 13:37 18:32 06:20 RBC 3.58 L (4.30-5.90) m/uL Hgb 11.7 L (13.0-17.5) gm/dL Hct 34.1 L (39.0-53.0) % Lymphocytes # 0.3 L (1.0-4.8) k/uL Sodium 136 L (137-145) mmol/L BUN 29 H (9-20) mg/dL Creatinine 1.87 H (0.66-1.25) mg/dL Glucose 138 H (74-99) mg/dL Calcium 8.1 L (8.4-10.2) mg/dL HDL Cholesterol 37.80 L (40.00-60.00) mg/dL Assessment and Plan Assessment: This is an 82-year-old gentleman who fell off of the golf cart and hit his head as a result had right hip fracture. He though prior to fall his legs were pos sibly weak and fell backward and felt was awake but unsure if truly did not lose consciousness. Hypodesity over the left insular cortex is concerning for acute to subacute stroke. Also on examination patient has dysmetria of bilateral upper concerning for cerebellar/posterior circulation stroke Fall and unsure if he had a stroke or due to other causes. Traumatic right femoral neck fracture from fall. History of strokes History of Atrial fibrillation and is on Xarelto History of COPD History of CHARANJIT and is on CPAP Plan: Pending MRI of the brain without to rule out acute or subacute ischemia. Pending 2-D echo. On aspirin 81 mg. If he does have acute or subacute stroke then recommend placing on dual antiplatelets for his stroke if no contraindication for use especially with recent orthopedic surgery. Continue Lipitor 40 milligrams daily at bedtime for secondary stroke prophylaxis. Pending routine EEG to rule out any underlying seizure or epileptiform discharges Continue every 4 hours neuro checks On cardiac monitoring Consulted PT and OT Orthopedic surgery team is on board We'll defer the rest of the medical medical Department team For DVT prophylaxis use SCDs. Consider subcu heparin 5000 units every 12 hours if not contraindication from orthopedic or primary team. Plan discussed with the patient and the N.P. from primary team and his nurse. Dr. Granado will start neurology service tomorrow A.M. Time with Patient: Less than 30
[2022-09-16] MEDS: HYDROmorphone 1 MG/ML 1 ML SYRINGE IVP PRN (13:31)
--- NOTE | 2022-09-16 15:05 | P.PN ---
Subjective Progress Note Date: 09/16/22 Hospital course: Patient is a very pleasant 82-year-old male with a past medical history of CAD with stent, atrial fibrillation on anticoagulation with Eliquis, history of CVA, COPD, and obstructive sleep apnea CPAP dependent nightly. He presented to the emergency department secondary to fall from golf cart. Patient was camping with friends and riding a golf cart when he reportedly fell out landing on his right hip and hitting his head. Patient denies having any loss of consciousness. He underwent full evaluation in the emergency department. Labs completed and reviewed. CBC unremarkable. Coagulation profile normal findings. BMP revealing elevated renal function with BUN of 31, creatinine 1.86, and GFR of 33 with unknown baseline is no previous labs for comparison. Liver profile was unremarkable. EKG completed showing normal sinus rhythm at 68 bpm with a right bundle branch block upon personal review and interpretation, no previous EKGs available for comparison. CT head completed showing several hypodensities within the subcortical limbic region on the left unclear if this is chronic ischemic changes or developing acute ischemia. CT cervical spine also completed revealing mild disc space narrowing between C3 and C4 otherwise negative for acute fractures or deformity. Chest x-ray was completed and radiology report reviewed stating mild platelike atelectasis at left lung base. X-ray pelvis and right femur were completed reporting a fracture of right femoral neck. CT right hip completed confirming right femoral neck fracture with no other acute abnormalities reported. Physical exam: Patient seen and fully evaluated at bedside this morning. Patient's myoclonic jerking motions seem to have improved the patient continues to have noted myoclonic jerking motion to left shoulder during assessment. Patient does report improvement when compared to yesterday and again confirms that this jerking motion of his left shoulder is new since fall from golf cart. Pt denies any other complaints at this time. Vital signs reviewed and stable. General: Nontoxic, no distress and appears stated age. Derm: Skin warm and dry, normal coloration for ethnicity. Head: Atraumatic, normocephalic and symmetric. Eyes: EOMs intact, no lid lag, and anicteric sclera Mouth: no lip lesions, mucus membranes moist Cardiovascular: regular rate and rhythm with normal S1S2, systolic murmur, positive posterior tibial pulses bilaterally, and cap refill < 2 seconds. Lungs: Respirations even, regular, and unlabored on room air. Lungs diminished, no rhonchi, no rales, no wheezing, and no accessory muscle usage. Abdominal: soft, nontender to palpation, no guarding, no appreciable organomegaly Ext: Movement and sensation intact. No gross muscle atrophy, no edema, no contractures. Postsurgical dressing right lateral leg clean, dry, and intact Neuro: Speech clear, face symmetrical and CN II-XII grossly intact with no noted focal neuro deficits Psych: Alert and oriented to person, place, time, and situation. Appropriate and pleasant affect. Assessment and Plan of Care: Traumatic fall Right femoral neck fracture status post right total hip arthroplasty on 09/15/22 -Management per primary admitting orthopedic surgery team including DVT prophylaxis, pain management, weightbearing, when/dressing changes, and PT/OT. Myoclonic jerking Incidental finding on imaging, CT brain revealing several hypodensities, rule out acute versus subacute CVA -CT head completed and radiologist report reviewed showing several hypodensities within the subcortical limbic region on the left unclear if this is chronic ischemic changes or developing acute ischemia. -Patient having jerking myoclonic motions noted in left upper extremity -Neurology following and discussed plan of care he stated he will ordered MRI of brain and recommending continuation of aspirin 81 mg daily at this time. -Continue Neuro checks every 4 hours. -Patient to continue with daily atorvastatin 40 mg daily and aspirin 81 mg daily -Fall precautions Chronic kidney disease -BMP revealing initially elevated renal function with BUN 31, creatinine 1.86, and GFR of 33. Repeat labs taken this morning showing stable renal function with BUN of 29, creatinine 1.87, and GFR of 12. -Patient is on chlorthalidone, will hold for an additional 24 hours and repeat labs tomorrow to ensure stable renal function prior to resuming. -Pt had IV fluid hydration with lactated Ringer's at 100 mL per hour. Discontinued IV fluids today and will recheck renal function tomorrow morning. If stable patient may resume chlorthalidone. -Order placed for repeat morning BMP and we will follow up closely with renal function and place additional orders based upon these results. CAD with stent, Atrial fibrillation on anticoagulation with Eliquis -Patient resumed aspirin 81 mg daily and Eliquis 2.5 mg twice daily in the evening of 09/15/22 after being cleared by primary admitting orthopedic surgeon to resume. -Patient to continue with daily cardiac medication regimen consisting of amlodipine 10 mg daily, Lipitor 40 mg daily, and metoprolol 100 mg daily. COPD and obstructive sleep apnea CPAP dependent nightly -Patient to continue with Ventolin inhaler 4 times daily as needed for shortness of breath and/or wheezing and Trelegy Ellipta inhaler daily. -Continue CPAP nightly and when napping. -Encourage incentive spirometry, encourage use 10-15 times hourly while awake. BPH -Resume Flomax 0.4 mg daily. Monitor for postvoid residuals. CODE STATUS: Full code DVT prophylaxis: SCDs, resume Eliquis once cleared by primary admitting orthopedic surgery team. Discussed with: patient, RN, neurologist, and orthopedic surgeon Anticipated discharge date: clinical course to determine Anticipated discharge place: home Patient was seen independently by Nurse Pracitioner. This document was prepared using [employer] dictation software. Please allow for errors in white metal caster, while rare they do occur. Parth Campuzano NP rendered care for this patient independently, reviewed the findings and plan as documented in the note above. I did not physically speak with or examine the patient on this date. Objective - Vital Signs Vital signs: Vital Signs Temp 97.9 F 09/15/22 20:00 Pulse 74 09/16/22 02:00 Resp 16 09/16/22 02:00 BP 119/56 09/16/22 02:00 Pulse Ox 94 L 09/16/22 02:00 FiO2 Intake & Output 09/15/22 09/16/22 09/16/22 18:59 06:59 18:59 Intake Total 950 1080 Output Total 800 400 Balance 150 680 Intake: IV 950 Oral 1080 Output: Urine 600 400 Estimated Blood Loss 200 Other: Voiding Method Indwelling Catheter - Labs CBC & Chem 7: 09/15/22 18:32 09/17/22 11:00 Labs: Abnormal Lab Results - Last 24 Hours (Table) 09/15/22 09/15/22 Range/Units 13:37 18:32 RBC 3.58 L (4.30-5.90) m/uL Hgb 11.7 L (13.0-17.5) gm/dL Hct 34.1 L (39.0-53.0) % Lymphocytes # 0.3 L (1.0-4.8) k/uL HDL Cholesterol 37.80 L (40.00-60.00) mg/dL
[2022-09-16] MEDS: MAGNESIUM SULFATE-D5W PMX 1 GM in DEXTROSE/WATER 1 100ML.BAG IVPB SCH ×2 (17:27→18:24)
[2022-09-16] MEDS: SENNOSIDES-DOCUSATE SODIUM 1 EACH TAB PO SCH (20:41)
[2022-09-17] MEDS: HYDROcodone/APAP 5-325MG 1 EACH TAB PO PRN ×3 (04:24→17:13)
[2022-09-17] MEDS: APIXABAN 2.5 MG TABLET PO SCH ×2 (06:39→17:05)
[2022-09-17] MEDS: IPRATROPIUM 0.5 MG/2.5 ML NEBU INHALATION SCH ×3 (07:24→15:19)
[2022-09-17] MEDS: METOPROLOL SUCCINATE (ER) 100 MG TAB.ER.24H PO SCH (08:12)
[2022-09-17] MEDS: ASPIRIN 81 MG PO SCH (08:12)
[2022-09-17] MEDS: PANTOPRAZOLE 40 MG TABLET PO SCH (08:12)
[2022-09-17] MEDS: FOLIC ACID 1 MG TAB PO SCH (08:12)
[2022-09-17] MEDS: TAMSULOSIN 0.4 MG CAP.ER.24H PO SCH (08:12)
[2022-09-17] MEDS: amLODIPine 10 MG TAB PO SCH (08:12)
[2022-09-17] MEDS: ATORVASTATIN 40 MG TAB PO SCH (08:12)
[2022-09-17] MEDS: SERTRALINE 50 MG TAB PO SCH (08:12)
--- NOTE | 2022-09-17 08:43 | P.PN ---
Subjective Progress Note Date: 09/17/22 This patient is an 82- year old male who is status-post right hip hemiarthroplasty on 09/15/22. Today is post-operative day #2. Patient is examined bedside with Dr. Madrigal. Patient states his hip was uncomfortable last evening, although his pain is well-controlled at this time. No new complaints. Objective - Vital Signs Vital signs: Vital Signs Temp 98.8 F 09/17/22 08:00 Pulse 68 09/17/22 08:00 Resp 16 09/17/22 08:00 BP 118/61 09/17/22 08:00 Pulse Ox 94 L 09/17/22 08:00 FiO2 Intake & Output 09/16/22 09/17/22 09/17/22 18:59 06:59 18:59 Intake Total 898 540 118 Output Total 200 250 Balance 698 290 118 Intake: Oral 898 540 118 Output: Urine 200 250 Other: Voiding Method Indwelling Catheter Indwelling Catheter - Exam On examination, patient is sitting up in bed in no acute distress. He is alert and answers questions appropriately. On inspection of the right hip, there is a clean, dry, intact surgical dressing in place. No bleeding or drainage through the dressing. Mild swelling of the thigh, the thigh is soft and compressible. Motor and sensory function is intact of the right lower extremity. Femoral nerve function intact. Right lower extremity warm and well-perfused. Calf is soft and nontender to palpation. - Labs CBC & Chem 7: 09/15/22 18:32 09/16/22 06:20 Assessment and Plan Assessment: Status-post right hip hemiarthroplasty on 09/15/22. Post-operative day #2. Plan: - Weight-bearing to tolerance on operative extremity with a walker. Fall precautions. - Physical therapy for mobilization. - Keep operative dressing in place. - Pain management as needed. - Eliquis for DVT prophylaxis. - Internal medicine for maco-op medical management. - Case management consulted for discharge planning. Anticipate discharge to subacute rehab.
--- NOTE | 2022-09-17 11:38 | EEG ---
ELECTROENCEPHALOGRAM REPORT PREAMBLE: This is an 82-year-old male with a syncopal spell. He did lose control of bladder and bowels. No tongue biting. No previous history of seizures. He has a history of 2 strokes in the past. CURRENT MEDICATIONS: 1. Eliquis. 2. Aspirin. 3. Norvasc. 4. Lipitor. 5. Folic acid. 6. Dilaudid. 7. Atrovent. 8. Toprol. 9. Protonix. 10.Zoloft. 11.Flomax. EEG FINDINGS: This is a 21-channel digital EEG recorded with video component, utilizing 10/20 International System with referential and bipolar montages. Background consists of well-developed, moderately well-regulated, somewhat low-amplitude activity in around 8 Hz alpha. Background is posterior dominant and is reactive to eye opening and closing. Photic driving response was seen with some flash frequencies. Drowsiness was seen with appearance of bilaterally symmetric theta frequency rhythm. Some stage II sleep was seen at the end of the study with presence of sleep spindles. No focal or generalized epileptiform activity was seen. EKG channel showed no obvious arrhythmia. IMPRESSION: This is a normal EEG during wakefulness, drowsiness, and stage II sleep. MMODL / IJN: [id number] /
[2022-09-17 11:45] LABS: Calcium 8.1 mg/dL (8.4-10.2); Magnesium 2.1 mg/dL (1.6-2.3); Potassium 3.2 mmol/L (3.5-5.1)
[2022-09-17] MEDS ORDERED: POTASSIUM CHLORIDE ER 20 MEQ TAB.ER PO STA (14:21)
[2022-09-17] MEDS ORDERED: MAG HYDROX/AL HYDROX/SIMETH 30 ML, HYOSCYAMINE ELIXIR 10 ML, LIDOCAINE VISCOUS 10 ML PO ONE ×3 (14:30)
--- NOTE | 2022-09-17 14:36 | P.PN ---
Subjective Progress Note Date: 09/17/22 Hospital course: Patient is a very pleasant 82-year-old male with a past medical history of CAD with stent, atrial fibrillation on anticoagulation with Eliquis, history of CVA, COPD, and obstructive sleep apnea CPAP dependent nightly. He presented to the emergency department secondary to fall from golf cart. Patient was camping with friends and riding a golf cart when he reportedly fell out landing on his right hip and hitting his head. Patient denies having any loss of consciousness. He underwent full evaluation in the emergency department. Labs completed and reviewed. CBC unremarkable. Coagulation profile normal findings. BMP revealing elevated renal function with BUN of 31, creatinine 1.86, and GFR of 33 with unknown baseline is no previous labs for comparison. Liver profile was unremarkable. EKG completed showing normal sinus rhythm at 68 bpm with a right bundle branch block upon personal review and interpretation, no previous EKGs available for comparison. CT head completed showing several hypodensities within the subcortical limbic region on the left unclear if this is chronic ischemic changes or developing acute ischemia. CT cervical spine also completed revealing mild disc space narrowing between C3 and C4 otherwise negative for acute fractures or deformity. Chest x-ray was completed and radiology report reviewed stating mild platelike atelectasis at left lung base. X-ray pelvis and right femur were completed reporting a fracture of right femoral neck. CT right hip completed confirming right femoral neck fracture with no other acute abnormalities reported. Physical exam: Patient seen and fully evaluated at bedside this morning. Patient's myoclonic jerking motions seem to continue to improve. Patient and patient's family/friends at bedside reports this is definitely a new finding since fall from golf cart. Patient currently does report having pain in his right hip but is due for pain medication and he states that the pain medication is managing pain well. Patient and RN reported that patient did have difficult time with ambulation this morning and was only able to take a couple steps before getting placed back into bed. Discussed with patient possibility of need for rehab upon discharge, at this time patient pretty persistent that he wants to be discharged home reporting he has lots of friends close by. Vital signs reviewed and stable. General: Nontoxic, no distress and appears stated age. Derm: Skin warm and dry, normal coloration for ethnicity. Head: Atraumatic, normocephalic and symmetric. Eyes: EOMs intact, no lid lag, and anicteric sclera Mouth: no lip lesions, mucus membranes moist Cardiovascular: regular rate and rhythm with normal S1S2, systolic murmur, positive posterior tibial pulses bilaterally, and cap refill < 2 seconds. Lungs: Respirations even, regular, and unlabored on room air. Lungs diminished, no rhonchi, no rales, no wheezing, and no accessory muscle usage. Abdominal: soft, nontender to palpation, no guarding, no appreciable organomegaly Ext: Movement and sensation intact. No gross muscle atrophy, no edema, no contractures. Postsurgical dressing right lateral hip/leg clean, dry, and intact Neuro: Speech clear, face symmetrical and CN II-XII grossly intact with myoclonic jerking left shoulder and no other noted focal neuro deficits Psych: Alert and oriented to person, place, time, and situation. Appropriate and pleasant affect. Assessment and Plan of Care: Traumatic fall Right femoral neck fracture status post right total hip arthroplasty on 09/15/22 -Management per primary admitting orthopedic surgery team including DVT prophylaxis, pain management, weightbearing, when/dressing changes, and PT/OT. -Discussed plan of care with orthopedic surgeon, patient will likely need rehab. Will discuss with physical therapist and case investigator tomorrow. Myoclonic jerking Incidental finding on imaging, CT brain revealing several hypodensities, rule out acute versus subacute CVA -CT head completed and radiologist report reviewed showing several hypodensities within the subcortical limbic region on the left unclear if this is chronic ischemic changes or developing acute ischemia. -Patient continues to have jerking myoclonic motions noted in left upper extremity, however they are reducing in frequency and continues to deny having any other new or changed neuro deficits. -Neurology following and ordered MRI of brain and recommending continuation of aspirin 81 mg daily at this time. -Continue Neuro checks every 4 hours. -Patient to continue with daily atorvastatin 40 mg daily and aspirin 81 mg daily -Fall precautions Hypokalemia -Morning labs reviewed potassium 3.2, orders placed for continued her 40 mEq 1 dose. Hypomagnesemia, resolved Chronic kidney disease -BMP revealing initially elevated renal function with BUN 31, creatinine 1.86, and GFR of 33. Repeat labs taken this morning showing stable renal function with BUN of 27, creatinine 1.76, and GFR of 35 -Elevated renal function appears to be chronic, order placed to resume chl orthalidone 25 mg daily -Pt had IV fluid hydration with lactated Ringer's at 100 mL per hour. Disco ntinued IV fluids today and will recheck renal function tomorrow morning. If stable patient may resume chlorthalidone. -Order placed for repeat morning BMP and we will follow up closely with renal fu nction and place additional orders based upon these results. CAD with stent, Atrial fibrillation on anticoagulation with Eliquis -Patient to continue with aspirin 81 mg daily and Eliquis 2.5 mg twice daily as cleared by primary admitting orthopedic surgeon to resume. -Patient to continue with daily cardiac medication regimen consisting of amlodipine 10 mg daily, Lipitor 40 mg daily, and metoprolol 100 mg daily. COPD and obstructive sleep apnea CPAP dependent nightly -Patient to continue with Ventolin inhaler 4 times daily as needed for shortness of breath and/or wheezing and Trelegy Ellipta inhaler daily. -Continue CPAP nightly and when napping. -Encourage incentive spirometry, encourage use 10-15 times hourly while awake. BPH -Resume Flomax 0.4 mg daily. Monitor for postvoid residuals. CODE STATUS: Full code DVT prophylaxis: Eliquis Discussed with: Patient, RN and orthopedic surgeon Anticipated discharge date: clinical course to determine Anticipated discharge place: home Patient was seen independently by Nurse Pracitioner. This document was prepared using [employer] dictation software. Please allow for errors in outsole handler, while rare they do occur. Parth Campuzano NP rendered care for this patient independently, reviewed the findings and plan as documented in the note above. I did not physically speak with or examine the patient on this date. Objective - Vital Signs Vital signs: Vital Signs Temp 97.5 F L 09/17/22 04:19 Pulse 58 L 09/17/22 07:36 Resp 18 09/17/22 04:19 BP 125/69 09/17/22 04:19 Pulse Ox 98 09/17/22 04:19 FiO2 Intake & Output 09/16/22 09/17/22 09/17/22 18:59 06:59 18:59 Intake Total 898 540 Output Total 200 250 Balance 698 290 Intake: Oral 898 540 Output: Urine 200 250 Other: Voiding Method Indwelling Catheter Indwelling Catheter - Labs CBC & Chem 7: 09/15/22 18:32 09/17/22 11:00 Labs: Abnormal Lab Results - Last 24 Hours (Table) 09/16/22 Range/Units 06:20 Sodium 136 L (137-145) mmol/L BUN 29 H (9-20) mg/dL Creatinine 1.87 H (0.66-1.25) mg/dL Glucose 138 H (74-99) mg/dL Calcium 8.1 L (8.4-10.2) mg/dL
--- NOTE | 2022-09-17 16:23 | P.PN ---
Subjective Progress Note Date: 09/17/22 Patient initially seen by Dr. Alireza Li. Please refer to his note for details. Patient is a 82-year-old male with a fall while he was getting into the golf cart, fell backwards, hit his head and suffered from right hip fracture. CT head showed hypodensity left insular region, concerning for stroke. MRI and EEG was ordered. Patient is on aspirin and Lipitor. Patient states that he is doing better. Complaining of pain in the hip about 5/10. Denies any new focal symptoms. Complains of headache 2/10. Some of the workup to this hospital visit consisted of: Lipid panel is a triglyceride 1.9, cholesterol 135, LDL 67 and HDL is 37 Carotid duplex: No significant evidence for hemodynamically significant stenosis of carotid artery bilaterally. CT of the head is reported as several hypodensity within the subcortical limp region of the left. This is nonspecific. Chronic ischemic changes or developing acute ischemia are within differential. Correlate with the patient's clinical symptoms. I personally reviewed the CT of the head and the patient has mild hypodensity over left ear insular region and seems suspicious for acute to subacute stroke. CT cervical spine was reported as mild disc space narrowing at C3-C4. Objective - Vital Signs Vital signs: Vital Signs Temp 98.5 F 09/17/22 11:40 Pulse 58 L 09/17/22 11:45 Resp 16 09/17/22 11:40 BP 133/63 09/17/22 11:40 Pulse Ox 100 09/17/22 11:40 FiO2 Intake & Output 09/16/22 09/17/22 09/17/22 18:59 06:59 18:59 Intake Total 898 540 236 Output Total 200 250 Balance 698 290 236 Intake: Oral 898 540 236 Output: Urine 200 250 Other: Voiding Method Indwelling Catheter Indwelling Catheter Indwelling Catheter - Exam Patient's mental status, speech and language functions are normal. Patient knows it is August 2022 and that is in [facility]. Speech and language functions are normal. Cranial nerves are normal. Visual magaña are full. Face is symmetric. Pupils are equal, round and reacting. On muscle strength testing, there is no pronator drift and the strength is normal in the arms. Patient has slight dysmetria for [id number] testing bilaterally, intermittently. Sensations to touch is equal. - Labs CBC & Chem 7: 09/15/22 18:32 09/17/22 11:00 Labs: Abnormal Lab Results - Last 24 Hours (Table) 09/17/22 Range/Units 11:00 Potassium 3.2 L (3.5-5.1) mmol/L BUN 27 H (9-20) mg/dL Creatinine 1.76 H (0.66-1.25) mg/dL Glucose 105 H (74-99) mg/dL Calcium 8.1 L (8.4-10.2) mg/dL Assessment and Plan Assessment: This is an 82-year-old gentleman who fell off of the golf cart and hit his head as a result had right hip fracture. He though prior to fall his legs were possibly weak and fell backward and felt was awake but unsure if truly did not lose consciousness. Hypodesity over the left insular cortex is concerning for acute to subacute stroke. Also on examination patient has dysmetria of bilateral upper concerning for cerebellar/posterior circulation stroke Fall and unsure if he had a stroke or due to other causes. Traumatic right femoral neck fracture from fall. History of strokes History of Atrial fibrillation and is on Xarelto History of COPD History of CHARANJIT and is on CPAP Plan: Pending MRI of the brain without to rule out acute or subacute ischemia. Pending 2-D echo. On aspirin 81 mg. If he does have acute or subacute stroke then recommend placing on dual antiplatelets for his stroke if no contraindication for use especially with recent orthopedic surgery. Continue Lipitor 40 milligrams daily at bedtime for secondary stroke prophylaxis. Routine EEG is normal during wakefulness, drowsiness and stage II sleep. No epileptiform activity was seen. Overall, slightly suppressed background suggests medication effect. Continue every 4 hours neuro checks On cardiac monitoring Consulted PT and OT Orthopedic surgery team is on board We'll defer the rest of the medical medical Department team For DVT prophylaxis use SCDs. Consider subcu heparin 5000 units every 12 hours if not contraindication from orthopedic or primary team.
[2022-09-17 20:01] LABS: Basophils % (A) 1 %; Eosinophils # (A) 0.4 k/uL (0-0.7); Eosinophils % (A) 7 %; HCT 29.4 % (39.0-53.0); Lymphocytes # (A) 0.6 k/uL (1.0-4.8); Lymphocytes % (A) 9 %; MCH 31.2 pg (25.0-35.0); MCHC 33.1 g/dL (31.0-37.0); MCV 94.4 fL (80.0-100.0); Mean Platelet Volume 8.5; Monocytes # (A) 0.4 k/uL (0-1.0); Monocytes % (A) 6 %; Neutrophils # (A) 5.1 k/uL (1.3-7.7); Neutrophils % (A) 77 %; Platelet Count 139 k/uL (150-450); RBC 3.11 m/uL (4.30-5.90); RDW 13.3 % (11.5-15.5); WBC 6.7 k/uL (3.8-10.6)
[2022-09-17 20:02] LABS: HGB 9.7 gm/dL (13.0-17.5)
[2022-09-17] MEDS: SENNOSIDES-DOCUSATE SODIUM 1 EACH TAB PO SCH (20:26)
[2022-09-17] MEDS: HYDROmorphone 1 MG/ML 1 ML SYRINGE IVP PRN (20:27)
[2022-09-18] MEDS: IPRATROPIUM 0.5 MG/2.5 ML NEBU INHALATION SCH ×5 (00:56→20:55)
[2022-09-18] MEDS: HYDROmorphone 1 MG/ML 1 ML SYRINGE IVP PRN (01:47)
[2022-09-18] MEDS: HYDROcodone/APAP 5-325MG 1 EACH TAB PO PRN ×2 (03:48→19:57)
[2022-09-18] MEDS: APIXABAN 2.5 MG TABLET PO SCH ×2 (06:30→16:59)
[2022-09-18] MEDS: HYDROmorphone 0.5 MG/0.5 ML SYRINGE IVP PRN ×2 (06:33→10:05)
[2022-09-18 09:06] LABS: Calcium 8.1 mg/dL (8.4-10.2); Magnesium 2.1 mg/dL (1.6-2.3); Potassium 4.1 mmol/L (3.5-5.1)
[2022-09-18] MEDS: CHLORTHALIDONE 25 MG TAB PO SCH (09:54)
[2022-09-18] MEDS: SERTRALINE 50 MG TAB PO SCH (09:54)
[2022-09-18] MEDS: TAMSULOSIN 0.4 MG CAP.ER.24H PO SCH (09:54)
[2022-09-18] MEDS: ATORVASTATIN 40 MG TAB PO SCH (09:54)
[2022-09-18] MEDS: METOPROLOL SUCCINATE (ER) 100 MG TAB.ER.24H PO SCH (09:54)
[2022-09-18] MEDS: PANTOPRAZOLE 40 MG TABLET PO SCH (09:54)
[2022-09-18] MEDS: ASPIRIN 81 MG PO SCH (09:54)
[2022-09-18] MEDS: FOLIC ACID 1 MG TAB PO SCH (09:54)
[2022-09-18] MEDS: amLODIPine 10 MG TAB PO SCH (09:54)
--- NOTE | 2022-09-18 09:57 | P.PN ---
Subjective Progress Note Date: 09/18/22 Hospital course: Patient is a very pleasant 82-year-old male with a past medical history of CAD with stent, atrial fibrillation on anticoagulation with Eliquis, history of CVA, COPD, and obstructive sleep apnea CPAP dependent nightly. He presented to the emergency department secondary to fall from golf cart. Patient was camping with friends and riding a golf cart when he reportedly fell out landing on his right hip and hitting his head. Patient denies having any loss of consciousness. He underwent full evaluation in the emergency department. Labs completed and reviewed. CBC unremarkable. Coagulation profile normal findings. BMP revealing elevated renal function with BUN of 31, creatinine 1.86, and GFR of 33 with unknown baseline is no previous labs for comparison. Liver profile was unremarkable. EKG completed showing normal sinus rhythm at 68 bpm with a right bundle branch block upon personal review and interpretation, no previous EKGs available for comparison. CT head completed showing several hypodensities within the subcortical limbic region on the left unclear if this is chronic ischemic changes or developing acute ischemia. CT cervical spine also completed revealing mild disc space narrowing between C3 and C4 otherwise negative for acute fractures or deformity. Chest x-ray was completed and radiology report reviewed stating mild platelike atelectasis at left lung base. X-ray pelvis and right femur were completed reporting a fracture of right femoral neck. CT right hip completed confirming right femoral neck fracture with no other acute abnormalities reported. Physical exam: Patient seen and fully evaluated at bedside this morning upon returning from MRI. Patient currently reports pain in right hip controlled. He denied having any needs or complaints. Case management working on discharge to rehab. Vital signs reviewed and stable. General: Nontoxic, no distress and appears stated age. Derm: Skin warm and dry, normal coloration for ethnicity. Head: Atraumatic, normocephalic and symmetric. Eyes: EOMs intact, no lid lag, and anicteric sclera Mouth: no lip lesions, mucus membranes moist Cardiovascular: regular rate and rhythm with normal S1S2, systolic murmur, positive posterior tibial pulses bilaterally, and cap refill < 2 seconds. Lungs: Respirations even, regular, and unlabored on room air. Lungs diminished, no rhonchi, no rales, no wheezing, and no accessory muscle usage. Abdominal: soft, nontender to palpation, no guarding, no appreciable orga nomegaly Ext: Movement and sensation intact. No gross muscle atrophy, no edema, no contractures. Postsurgical dressing right lateral hip/leg clean, dry, and intact Neuro: Speech clear, face symmetrical and CN II-XII grossly intact with myoclonic jerking left shoulder and no other noted focal neuro deficits Psych: Alert and oriented to person, place, time, and situation. Appropriate and pleasant affect. Assessment and Plan of Care: Traumatic fall Right femoral neck fracture status post right total hip arthroplasty on 09/15/22 -Management per primary admitting orthopedic surgery team including DVT prophylaxis, pain management, weightbearing, when/dressing changes, and PT/OT. -Discussed plan of care with orthopedic surgeon and family service caseworker. Patient will need rehab upon discharge. Myoclonic jerking Incidental finding on imaging, CT brain revealing several hypodensities, rule out acute versus subacute CVA -CT head completed and radiologist report reviewed showing several hypodensities within the subcortical limbic region on the left unclear if this is chronic ischemic changes or developing acute ischemia. -Patient continues to have jerking myoclonic motions noted in left upper extremity, however they continue to improve in frequency and patient continues to deny having any other new or changed neuro deficits. -Neurology following and recommending continuation of aspirin 81 mg daily at this time. -EEG completed reported to be a normal EEG during wakefulness, drowsiness, and sleep two-stage. -MRI completed and awaiting results -Echocardiogram completed and awaiting results -Patient to continue with daily atorvastatin 40 mg daily and aspirin 81 mg daily -Fall precautions Hypokalemia, resolved Hypomagnesemia, resolved Chronic kidney disease -BMP stable with elevated renal function with BUN 25, creatinine 1.47, and GFR 43. -Elevated renal function appears to be chronic, resumed chlorthalidone 25 mg daily. CAD with stent Atrial fibrillation on anticoagulation with Eliquis -Patient to continue with aspirin 81 mg daily and Eliquis 2.5 mg twice daily as cleared by primary admitting orthopedic surgeon to resume. -Patient to continue with daily cardiac medication regimen consisting of amlodipine 10 mg daily, Lipitor 40 mg daily, and metoprolol 100 mg daily. COPD and obstructive sleep apnea CPAP dependent nightly -Patient to continue with Ventolin inhaler 4 times daily as needed for shortness of breath and/or wheezing and Trelegy Ellipta inhaler daily. -Continue CPAP nightly and when napping. -Encourage incentive spirometry, encourage use 10-15 times hourly while awake. BPH -Resume Flomax 0.4 mg daily. Monitor for postvoid residuals. CODE STATUS: Full code DVT prophylaxis: Liz Discussed with: Patient, RN and orthopedic surgeon Anticipated discharge date: clinical course to determine Anticipated discharge place: home Patient was seen independently by Nurse Pracitioner. This document was prepared using [employer] dictation software. Please allow for errors in kitchen stewardess, while rare they do occur. I reviewed the documentation as provided by the JAQUELIN above, who is the original author of this note. I agree with the documented assessment and plan, with the following changes: none Objective - Vital Signs Vital signs: Vital Signs Temp 98.3 F 09/18/22 03:45 Pulse 81 09/18/22 07:58 Resp 18 09/18/22 07:58 BP 143/64 09/18/22 03:45 Pulse Ox 95 09/18/22 07:49 FiO2 Intake & Output 09/17/22 09/18/22 09/18/22 18:59 06:59 18:59 Intake Total 1316 118 Output Total 1000 400 Balance 316 -282 Intake: Oral 1316 118 Output: Urine 1000 400 Other: Voiding Method Indwelling Catheter Indwelling Catheter - Labs CBC & Chem 7: 09/19/22 08:36 09/19/22 08:36 Labs: Abnormal Lab Results - Last 24 Hours (Table) 09/17/22 09/17/22 Range/Units 11:00 19:16 RBC 3.11 L (4.30-5.90) m/uL Hgb 9.7 L D (13.0-17.5) gm/dL Hct 29.4 L (39.0-53.0) % Plt Count 139 L (150-450) k/uL Lymphocytes # 0.6 L (1.0-4.8) k/uL Potassium 3.2 L (3.5-5.1) mmol/L BUN 27 H (9-20) mg/dL Creatinine 1.76 H (0.66-1.25) mg/dL Glucose 105 H (74-99) mg/dL Calcium 8.1 L (8.4-10.2) mg/dL
--- NOTE | 2022-09-18 10:04 | MR ---
EXAMINATION TYPE: MR brain wo con DATE OF EXAM: 09/18/2022 COMPARISON: CT brain 4 days ago HISTORY: Fall, leg weakness, stroke. TECHNIQUE: Multiplanar, multisequence imaging of the brain and brainstem is performed without IV cont rast. FINDINGS: Diffusion weighted images demonstrate no evidence of a recent infarct or other diffusion abnormality. There is mild to moderate ventricular and sulcal prominence redemonstrated. Scattered focal and confl uent areas of T2 hyperintensity throughout the deep and periventricular white matter are seen. Midline structures demonstrate normal morphology. Low-lying cerebellar tonsils into foramen magnum ar e seen but no greater than 5 mm inferior extension noted. Normal vascular flow voids are present. The visualized sinuses are clear and the globes are intact. IMPRESSION: 1. No MRI evidence for a recent infarct. 2. Background of mild to moderate diffuse cerebral atrophy and moderate chronic small vessel ischemic change is present.
--- NOTE | 2022-09-18 12:19 | P.PN ---
Subjective Progress Note Date: 09/18/22 This patient is an 82- year old male who is status-post right hip hemiarthroplasty on 09/15/22. Today is post-operative day #3. Patient is examined bedside with Dr. Madrigal. Patient has MRI of the brain this morning per neurology. Patient states pain in the right hip is well controlled at this time. He has no new complaints. Patient is planning to discharge to rehab. Objective - Vital Signs Vital signs: Vital Signs Temp 98.0 F 09/18/22 10:08 Pulse 69 09/18/22 11:45 Resp 18 09/18/22 11:45 BP 137/61 09/18/22 11:45 Pulse Ox 95 09/18/22 11:45 FiO2 Intake & Output 09/17/22 09/18/22 09/18/22 18:59 06:59 18:59 Intake Total 1316 118 358 Output Total 1000 400 Balance 316 -282 358 Intake: Oral 1316 118 358 Output: Urine 1000 400 Other: Voiding Method Indwelling Catheter Indwelling Catheter Indwelling Catheter - Exam On examination, patient is sitting up in bed in no acute distress. He is alert and answers questions appropriately. On inspection of the right hip, there is a clean, dry, intact surgical dressing in place. No bleeding or drainage through the dressing. Mild swelling of the thigh, the thigh is soft and compressible. Motor and sensory function is intact of the right lower extremity. Femoral nerve function intact. Right lower extremity warm and well-perfused. Calf is soft and nontender to palpation. - Labs CBC & Chem 7: 09/17/22 19:16 09/18/22 08:00 Labs: Abnormal Lab Results - Last 24 Hours (Table) 09/17/22 09/18/22 Range/Units 19:16 08:00 RBC 3.11 L (4.30-5.90) m/uL Hgb 9.7 L D (13.0-17.5) gm/dL Hct 29.4 L (39.0-53.0) % Plt Count 139 L (150-450) k/uL Lymphocytes # 0.6 L (1.0-4.8) k/uL Carbon Dioxide 31 H (22-30) mmol/L BUN 25 H (9-20) mg/dL Creatinine 1.47 H (0.66-1.25) mg/dL Calcium 8.1 L (8.4-10.2) mg/dL Assessment and Plan Assessment: Status-post right hip hemiarthroplasty on 09/15/22. Post-operative day #3. Plan: - Weight-bearing to tolerance on operative extremity with a walker. Fall precautions. - Physical therapy for mobilization. - Keep operative dressing in place. - Pain management as needed. - Eliquis for DVT prophylaxis. - Internal medicine for maco-op medical management. - Spoke with case management regarding discharge plan. They are awaiting a call back from patient's son to determine which rehab facility they prefer. Anticipate possible discharge tomorrow.
--- NOTE | 2022-09-18 17:34 | CA ---
Transthoracic Echo Report Name: Boyd Austin Age: 82 Gender: M : 1940 Exam Date: 09/18/2022 11:25 Exam Location: [facility] Ht (in): 65 Wt (lb): 208 Ordering Physician: Alireza Li MD Attending/Referring Phys: Formwork Carpenter Karin Bae RDCS Procedure CPT: Indications: stroke Cardiac Hx: Technical Quality: Fair Contrast 1: Total Dose (mL): Contrast 2: Total Dose (mL): MEASUREMENTS (Male / Female) Normal Values 2D ECHO LV Diastolic Diameter PLAX 5.5 cm 4.2 - 5.9 / 3.9 - 5.3 cm LV Systolic Diameter PLAX 3.4 cm IVS Diastolic Thickness 1.3 cm 0.6 - 1.0 / 0.6 - 0.9 cm LVPW Diastolic Thickness 1.5 cm 0.6 - 1.0 / 0.6 - 0.9 cm LV Relative Wall Thickness 0.5 RV Internal Dim ED PLAX 2.8 cm LA Systolic Diameter LX 3.8 cm 3.0 - 4.0 / 2.7 - 3.8 cm LA Volume 63.4 cm??? 18 - 58 / 22 - 52 cm??? M-MODE Aortic Root Diameter MM 3.0 cm AV Cusp Separation MM 1.8 cm DOPPLER AV Peak Velocity 202.8 cm/s AV Peak Gradient 16.5 mmHg AV Mean Velocity 141.5 cm/s AV Mean Gradient 9.0 mmHg AV Velocity Time Integral 45.3 cm MV Area PHT 2.1 cm??? Mitral E Point Velocity 83.6 cm/s Mitral A Point Velocity 115.3 cm/s Mitral E to A Ratio 0.7 MV Deceleration Time 362.9 ms MV E' Velocity 6.6 cm/s Mitral E to MV E' Ratio 12.6 TR Peak Velocity 267.0 cm/s TR Peak Gradient 28.5 mmHg Right Ventricular Systolic Press 33.5 mmHg FINDINGS Left Ventricle Left ventricular ejection fraction is estimated at 50-55 %. Left ventricular cavity size normal. Moderate concentric left ventricular hypertrophy. Right Ventricle Normal right ventricular size. Mild pulmonary hypertension. Right Atrium Normal right atrial size. Left Atrium Mildly increased left atrial volume. Mitral Valve Mitral valve thickened. Mild mitral annular calcification. No mitral stenosis, regurgitation or prolapse. Aortic Valve Trileaflet aortic valve. Mild aortic stenosis with a peak gradient of 17 mmHg and a mean gradient of 9 mmHg. Tricuspid Valve Structurally normal tricuspid valve. Mild tricuspid regurgitation. Pulmonic Valve Pulmonic valve not well visualized. Pericardium Normal pericardium. No pericardial effusion. Aorta Normal size aortic root and proximal ascending aorta. CONCLUSIONS Normal LV systolic function Mild aortic stenosis Previewed by: Dr. Franklyn Shanks MD (Electronically Signed) Final Date: 18 Sep 2022 17:33
[2022-09-18] MEDS: SENNOSIDES-DOCUSATE SODIUM 1 EACH TAB PO SCH (19:57)
[2022-09-19] MEDS: HYDROmorphone 0.5 MG/0.5 ML SYRINGE IVP PRN (00:04)
[2022-09-19] MEDS: HYDROcodone/APAP 5-325MG 1 EACH TAB PO PRN ×3 (03:32→15:53)
[2022-09-19] MEDS: APIXABAN 2.5 MG TABLET PO SCH (06:15)
[2022-09-19 09:03] LABS: Basophils % (A) 0 %; Eosinophils # (A) 0.5 k/uL (0-0.7); Eosinophils % (A) 7 %; HCT 32.1 % (39.0-53.0); Lymphocytes # (A) 0.6 k/uL (1.0-4.8); Lymphocytes % (A) 9 %; MCH 32.4 pg (25.0-35.0); MCHC 34.1 g/dL (31.0-37.0); MCV 94.8 fL (80.0-100.0); Monocytes # (A) 0.5 k/uL (0-1.0); Monocytes % (A) 7 %; Neutrophils # (A) 5.1 k/uL (1.3-7.7); Neutrophils % (A) 75 %; Platelet Count 180 k/uL (150-450); RBC 3.39 m/uL (4.30-5.90); RDW 12.9 % (11.5-15.5); WBC 6.8 k/uL (3.8-10.6)
[2022-09-19] MEDS: IPRATROPIUM 0.5 MG/2.5 ML NEBU INHALATION SCH ×3 (09:03→15:11)
[2022-09-19 09:35] LABS: Albumin 3.3 g/dL (3.5-5.0); Calcium 8.5 mg/dL (8.4-10.2); Magnesium 1.9 mg/dL (1.6-2.3); Potassium 3.9 mmol/L (3.5-5.1); Total Bilirubin 0.8 mg/dL (0.2-1.3)
--- NOTE | 2022-09-19 09:36 | P.DS ---
Providers Date of admission: 09/14/22 23:16 Expected date of discharge: 09/19/22 Attending physician: Josh Madrigal Consults: 09/14/22 23:14 Consult Physician Routine Consulting Provider: Kimmie Mckoy Consult Reason/Comments: Medical clearance for right hip fracture Do you want consulting provider notified?: Already Contacted 09/15/22 09:42 Consult Physician Urgent Consulting Provider: Alireza Li Consult Reason/Comments: rule out ischemic changes, acute vs chronic Do you want consulting provider notified?: Yes Primary care physician: Jadiel Gonzales DO Hospital Course: This patient is an 82-year-old male who sustained a ground-level fall on 09/14/22. X-rays in the emergency department revealed a right femoral neck fracture. Patient was admitted under the care on Dr. Madrigal for surgical intervention with a consult placed an internal medicine for preoperative medical clearance. Patient underwent a direct anterior right hip hemiarthroplasty on 09/15/22. The procedure was performed without complication or sequelae. Vital signs and labs are stable on postoperative day #4. Patient is examined bedside this morning. He states the pain in his right hip i s well controlled at this time. Patient is tolerating his diet well. He denies chest pain, shortness of breath, nausea, vomiting. No new complaints the day of discharge. On examination, patient is sitting up in bed in no apparent distress. He is alert and oriented 3. On inspection of the right hip, there is a clean, dry, intact surgical dressing in place. No bleeding or drainage through the d ressing. Motor and sensory function is intact of the right lower extremity. Femoral nerve function intact. Right lower extremity warm and well perfused. Calf is nontender. Patient is discharged to rehab today, pending medical clearance. Please see med rec for accurate list of discharge medications. He should follow-up in the office in two weeks at [facility]. Patient Condition at Discharge: Stable Plan - Discharge Summary Discharge Rx Participant: No New Discharge Prescriptions: New Docusate [Colace] 100 mg PO BID #60 capsule HYDROcodone/APAP 5-325MG [[place] 5-325] 1 - 2 tab PO Q6HR PRN 7 Days #30 tab PRN Reason: Pain No Action Atorvastatin Calcium [Lipitor] 40 mg PO DAILY Apixaban [Eliquis] 2.5 mg PO AC-BID Albuterol Sulfate [Ventolin HFA] 2 puff INHALATION RT-QID PRN PRN Reason: Shortness Of Breath Tamsulosin [Flomax] 0.4 mg PO DAILY Folic Acid 1 mg PO DAILY Acetaminophen [Tylenol 8 Hour] 650 mg PO BID amLODIPine [Norvasc] 10 mg PO DAILY Sertraline [Zoloft] 50 mg PO DAILY Metoprolol Succinate [Toprol XL] 100 mg PO DAILY Fluticasone/Umeclidin/Vilanter [Trelegy Ellipta 100-62.5-25] 1 puff INHALATION RT-DAILY Chlorthalidone 25 mg PO DAILY Pantoprazole [Protonix] 40 mg PO DAILY Psyllium Husk [Fiber Capsule] 0.4 gm PO AC-BID Discharge Medication List Acetaminophen [Tylenol 8 Hour] 650 mg PO BID 09/15/22 [History] Albuterol Sulfate [Ventolin HFA] 2 puff INHALATION RT-QID PRN 09/15/22 [History] Apixaban [Eliquis] 2.5 mg PO AC-BID 09/15/22 [History] Atorvastatin Calcium [Lipitor] 40 mg PO DAILY 09/15/22 [History] Chlorthalidone 25 mg PO DAILY 09/15/22 [History] Fluticasone/Umeclidin/Vilanter [Trelegy Ellipta 100-62.5-25] 1 puff INHALATION RT-DAILY 09/15/22 [History] Folic Acid 1 mg PO DAILY 09/15/22 [History] Metoprolol Succinate [Toprol XL] 100 mg PO DAILY 09/15/22 [History] Pantoprazole [Protonix] 40 mg PO DAILY 09/15/22 [History] Psyllium Husk [Fiber Capsule] 0.4 gm PO AC-BID 09/15/22 [History] Sertraline [Zoloft] 50 mg PO DAILY 09/15/22 [History] Tamsulosin [Flomax] 0.4 mg PO DAILY 09/15/22 [History] amLODIPine [Norvasc] 10 mg PO DAILY 09/15/22 [History] Docusate [Colace] 100 mg PO BID #60 capsule 09/19/22 [Rx] HYDROcodone/APAP 5-325MG [[place] 5-325] 1 - 2 tab PO Q6HR PRN 7 Days #30 tab 09/19/22 [Rx] Follow up Appointment(s)/Referral(s): Nonstaff,Physician [REFERRING] - 1-2 days Josh Madrigal MD [Medical Doctor] - 2 Weeks Activity/Diet/Wound Care/Special Instructions: Weight bear to tolerance on operative extremity with a walker. Fall precautions. Keep operative dressing in place until follow-up in the office. May shower over dressing. Call the office if dressing becomes saturated or falls off. Take pain medications as prescribed. Resume Eliquis for DVT prophylaxis. Follow-up in the office in two weeks at [facility]. Call the office with any questions or concerns, Discharge Disposition: TRANSFER TO SNF/ECF
[2022-09-19] MEDS ORDERED: methylPREDNISolone SOD SUCCI 125 MG/2 ML VIAL IV STA (10:05)
[2022-09-19] MEDS: PANTOPRAZOLE 40 MG TABLET PO SCH (10:15)
[2022-09-19] MEDS: amLODIPine 10 MG TAB PO SCH (10:15)
[2022-09-19] MEDS: ASPIRIN 81 MG PO SCH (10:15)
[2022-09-19] MEDS: TAMSULOSIN 0.4 MG CAP.ER.24H PO SCH (10:15)
[2022-09-19] MEDS: ATORVASTATIN 40 MG TAB PO SCH (10:15)
[2022-09-19] MEDS: CHLORTHALIDONE 25 MG TAB PO SCH (10:15)
[2022-09-19] MEDS: SERTRALINE 50 MG TAB PO SCH (10:15)
[2022-09-19] MEDS: FOLIC ACID 1 MG TAB PO SCH (10:15)
[2022-09-19] MEDS: METOPROLOL SUCCINATE (ER) 100 MG TAB.ER.24H PO SCH (10:15)
--- NOTE | 2022-09-19 10:44 | P.PN ---
Subjective Progress Note Date: 09/18/22 09/18/2022: Patient was seen for a follow-up. Patient is laying comfortably in the bed. Offers no new complaints except for pain in the right hip region. Telemetry monitoring showing sinus rhythm. 09/17/2022: Patient initially seen by Dr. Alireza Li. Please refer to his note for details. Patient is a 82-year-old male with a fall while he was getting into the golf cart, fell backwards, hit his head and suffered from right hip fracture. CT head showed hypodensity left insular region, concerning for stroke. MRI and EEG was ordered. Patient is on aspirin and Lipitor. Patient states that he is doing better. Complaining of pain in the hip about 5/10. Denies any new focal symptoms. Complains of headache 2/10. Some of the workup to this hospital visit consisted of: Lipid panel is a triglyceride 1.9, cholesterol 135, LDL 67 and HDL is 37 Carotid duplex: No significant evidence for hemodynamically significant stenosis of carotid artery bilaterally. CT of the head is reported as several hypodensity within the subcortical limp region of the left. This is nonspecific. Chronic ischemic changes or developing acute ischemia are within differential. Correlate with the patient's clinical symptoms. I personally reviewed the CT of the head and the patient has mild hypodensity over left ear insular region and seems suspicious for acute to subacute stroke. CT cervical spine was reported as mild disc space narrowing at C3-C4. Objective - Vital Signs Vital signs: Vital Signs Temp 98.8 F 09/18/22 19:51 Pulse 61 09/18/22 19:51 Resp 16 09/18/22 19:51 BP 133/62 09/18/22 19:51 Pulse Ox 94 L 09/18/22 19:51 FiO2 Intake & Output 09/18/22 09/18/22 09/19/22 06:59 18:59 06:59 Intake Total 118 594 Output Total 400 650 Balance -282 -56 Intake: Oral 118 594 Output: Urine 400 650 Other: Voiding Method Indwelling Catheter Indwelling Catheter - Exam Patient's mental status, speech and language functions are normal. Patient knows it is August 2022 and that is in [facility]. Speech and language functions are normal. Cranial nerves are normal. Visual magaña are full. Face is symmetric. Pupils are equal, round and reacting. On muscle strength testing, there is no pronator drift and the strength is normal in the arms. Patient has slight dysmetria for [id number] testing bilaterally, intermittently. Sensations to touch is equal. - Labs CBC & Chem 7: 09/19/22 08:36 09/19/22 08:36 Labs: Abnormal Lab Results - Last 24 Hours (Table) 09/17/22 09/18/22 Range/Units 19:16 08:00 RBC 3.11 L (4.30-5.90) m/uL Hgb 9.7 L D (13.0-17.5) gm/dL Hct 29.4 L (39.0-53.0) % Plt Count 139 L (150-450) k/uL Lymphocytes # 0.6 L (1.0-4.8) k/uL Carbon Dioxide 31 H (22-30) mmol/L BUN 25 H (9-20) mg/dL Creatinine 1.47 H (0.66-1.25) mg/dL Calcium 8.1 L (8.4-10.2) mg/dL Assessment and Plan Assessment: This is an 82-year-old gentleman who fell off of the golf cart and hit his head as a result had right hip fracture. He though prior to fall his legs were possibly weak and fell backward and felt was awake but unsure if truly did not lose consciousness. Hypodesity over the left insular cortex, rule out acute/subacute CVA. History of atrial fibrillation,, on anticoagulation with Eliquis Fall and unsure if he had a stroke or due to other causes. Traumatic right femoral neck fracture from fall. History of strokes History of Atrial fibrillation and is on Xarelto History of COPD History of CHARANJIT and is on CPAP Plan: MRI of the brain without revealed no acute infarct. Background of mild to moderate diffuse cerebral atrophy and moderate chronic small vessel ischemic change. I personally reviewed MRI, I agree with the findings. 2-D echo revealed normal left ventricular systolic function with EF 50-55%. Moderate concentric LVH, left atrium mildly increased in volume. Mild aortic stenosis. Patient currently on Eliquis 2.5 mg twice a day for atrial fibrillation., No need for aspirin from neurology point, unless indicated from cardiology standpoint. He should on Protonix for gastric ulcer prophylaxis. Routine EEG is normal during wakefulness, drowsiness and stage II sleep. No epileptiform activity was seen. Overall, slightly suppressed background suggests medication effect. On cardiac monitoring, telemetry showing sinus rhythm. Consulted PT and OT Orthopedic surgery team is on board We'll defer the rest of the medical medical Department team For DVT prophylaxi: Patient on Eliquis Neurologically clear.
--- NOTE | 2022-09-19 11:09 | XR ---
EXAMINATION TYPE: XR chest 2V DATE OF EXAM: 09/19/2022 COMPARISON: Chest x-ray 5 days ago HISTORY: Shortness of breath TECHNIQUE: Frontal and lateral views of the chest are obtained. FINDINGS: There is chronic parenchymal change bilaterally without suspicious new focal air space opa city, pleural effusion, or pneumothorax seen. Cardiomegaly with atherosclerotic and ectatic thoracic aorta causing right-sided tracheal deviation is redemonstrated. Nonspecific right paratracheal opaci ty again seen. The osseous structures remain demineralized. IMPRESSION: Chronic changes and cardiomegaly without new acute pulmonary process. No significant abdulaziz nge from prior.
[2022-09-19 11:10] VITALS: RESP 18
--- NOTE | 2022-09-19 13:04 | P.PN ---
Subjective Progress Note Date: 09/19/22 Patient seen and examined at bedside. Patient denies chest pain. Patient has stated that he has chronic shortness of breath due to COPD. On exam patient had bilateral expiratory wheezing. Patient denied productive cough, fever, chills, nausea or vomiting. Objective - Vital Signs Vital signs: Vital Signs Temp 99.5 F 09/19/22 03:30 Pulse 80 09/19/22 11:55 Resp 18 09/19/22 08:00 BP 166/78 09/19/22 03:30 Pulse Ox 96 09/19/22 03:30 FiO2 5 09/18/22 23:32 Intake & Output 09/18/22 09/19/22 09/19/22 18:59 06:59 18:59 Intake Total 594 Output Total 650 900 Balance -56 -900 Intake: Oral 594 Output: Urine 650 900 Other: Voiding Method Indwelling Catheter Indwelling Catheter Indwelling Catheter - Exam General: [non toxic], [no distress], [appears at stated age] Derm: [warm], [dry] Head: [atraumatic], [normocephalic], [symmetric] Eyes: [EOMI], [no lid lag], [anicteric sclera] Mouth: [no lip lesion], [mucus membranes moist] Cardiovascular: [S1S2 reg], [no murmur], [positive posterior tibial pulse bilateral], Lungs: [Bilateral expiratory wheezing] , [no accessory muscle use] Abdominal: [soft], [ nontender to palpation], [no guarding], [no appreciable organomegaly] Ext: [no gross muscle atrophy], [no edema], [no contractures] Neuro: [ CN II-XI grossly intact], [no focal neuro deficits] Psych: [Alert], [oriented], [appropriate affect] - Labs CBC & Chem 7: 09/19/22 08:36 09/19/22 08:36 Labs: Abnormal Lab Results - Last 24 Hours (Table) 09/19/22 09/19/22 Range/Units 08:36 08:36 RBC 3.39 L (4.30-5.90) m/uL Hgb 11.0 L (13.0-17.5) gm/dL Hct 32.1 L (39.0-53.0) % Lymphocytes # 0.6 L (1.0-4.8) k/uL Carbon Dioxide 31 H (22-30) mmol/L BUN 21 H (9-20) mg/dL Creatinine 1.31 H (0.66-1.25) mg/dL Glucose 103 H (74-99) mg/dL Total Protein 6.0 L (6.3-8.2) g/dL Albumin 3.3 L (3.5-5.0) g/dL Assessment and Plan Assessment: COPD exacerbation -Solu-Medrol 125 mg IV push 1 -Steroid taper provided on discharge -Stat chest x-ray reviewed and revealed no acute cardiopulmonary process Traumatic fall Right femoral neck fracture status post right total hip arthroplasty on 09/15/22 -Management per primary admitting orthopedic surgery team including DVT prophylaxis, pain management, weightbearing, when/dressing changes, and PT/OT. -Discussed plan of care with orthopedic surgeon and vocational case manager. Patient will need rehab upon discharge. Myoclonic jerking Incidental finding on imaging, CT brain revealing several hypodensities, rule out acute versus subacute CVA -CT head completed and radiologist report reviewed showing several hypodensities within the subcortical limbic region on the left unclear if this is chronic ischemic changes or developing acute ischemia. -Patient continues to have jerking myoclonic motions noted in left upper extremity, however they continue to improve in frequency and patient continues to deny having any other new or changed neuro deficits. -Neurology following and recommending continuation of aspirin 81 mg daily at this time. -EEG completed reported to be a normal EEG during wakefulness, drowsiness, and sleep two-stage. -MRI completed 09/18/22 reveals no evidence of recent infarct. Background of mild to moderate diffuse cerebral atrophy and moderate chronic small vessel ischemic changes are present -Echocardiogram completed 09/18/22 ejection fraction is 50-55%. Moderate concentric left ventricular hypertrophy. Mild aortic stenosis. -Patient to continue with daily atorvastatin 40 mg daily and aspirin 81 mg daily -Fall precautions Hypokalemia, resolved Hypomagnesemia, resolved Chronic kidney disease -BMP stable creatinine 1.31 -Elevated renal function appears to be chronic, resumed chlorthalidone 25 mg daily. CAD with stent Atrial fibrillation on anticoagulation with Eliquis -Patient to continue with aspirin 81 mg daily and Eliquis 2.5 mg twice daily as cleared by primary admitting orthopedic surgeon to resume. -Patient to continue with daily cardiac medication regimen consisting of amlodipine 10 mg daily, Lipitor 40 mg daily, and metoprolol 100 mg daily. Obstructive sleep apnea CPAP dependent nightly -Patient to continue with Ventolin inhaler 4 times daily as needed for shortness of breath and/or wheezing and Trelegy Ellipta inhaler daily. -Continue CPAP nightly and when napping. -Encourage incentive spirometry, encourage use 10-15 times hourly while awake. BPH -Resume Flomax 0.4 mg daily. Monitor for postvoid residuals. CODE STATUS: Full code DVT prophylaxis: Eliquis Anticipated discharge date: today Anticipated discharge place: rehab [facility] to [facility] from medical standpoint. Oral steroid taper provided on Discharge. This document was prepared using [employer] dictation software. Please allow for errors in medical payment poster, while rare they do occur.
[2022-09-19 15:51] VITALS: BP 146/68; PULSE 75; TEMP 98.4
[2022-09-19] MEDS ORDERED: BUDESONIDE 1 MG/2 ML NEBU INHALATION SCH (20:00)
[2022-09-20] MEDS ORDERED: predniSONE 20 MG TAB PO SCH (09:00)
--- NOTE | 2022-09-21 09:59 | CDI ---
Documentation Clarification Form Date: 09/21/2022 From: Naina Reyes Admit Date: 09/14/2022 11:16:00 PM Patient Name: Boyd Austin Visit Number: [id number] Discharge Date: 09/19/2022 03:57:00 PM ATTENTION: The Clinical Documentation Specialists (CDI) and [facility] Coding Staff appreciate your assistance in clarifying documentation. Please respond to the clarification below the line at the bottom and electronically sign. The CDI & [facility] Coding staff will review the response and follow-up if needed. Please note: Queries are made part of the Legal Health Record. If you have any questions, please contact the author of this message via ITS. Dr. Bennie Greenwood, Unspecified CKD is documented 09/19, Progress Note. Additional clarification regarding the stage of CKD is requested. History/Risk Factors: COPD, A-fib, ME, TIA, & BPH Clinical Indicators: -Elevatedrenal function appears to be chronic, resumed chlorthalidone 5 mg daily. Current BUN/CR/GFR: 09/14 31/1.86/33 09/16 29/1.87/32 09/17 27/1.76/35 09/18 25/1.47/43 09/19 21/1.31/50 Treatment: 09/15 -Patient is on chlorthalidone, will hold at this time. -Patient to continue with gentle IV fluid hydration with lactated Ringer's at 100 mL per hour. 09/16 -Patient is on chlorthalidone, will hold for an additional 24 hours and repeat labs tomorrow to ensure stable renal function prior to resuming. -Pt had IV fluid hydration with lactated Ringer's at 100 mL per hour. Discontinued IV fluids today and will recheck renal function tomorrow morning. If stable patient may resume chlorthalidone. 09/17 -Pt had IV fluid hydration with lactated Ringer's at 100 mL per hour. Discontinued IV fluids today and will recheck renal function tomorrow morning. If stable patient may resume chlorthalidone. 09/18 -BMPstable withelevatedrenal function -Elevatedrenal function appears to be chronic, resumed chlorthalidone 25 mg daily. Please clarify the stage of the CKD, if known: [ ] CKD Stage 1 (GFR > 90) [ ] CKD Stage 2 (GFR 60-89) [ x ] CKD Stage 3 (GFR 30-59) [ ] CKD Stage 3a (GFR 45-59) [ ] CKD Stage 3b (GFR 30-44) [ ] CKD Stage 4 (GFR 15-29) [ ] CKD Stage 5 (GFR <15) [ ] Acute Kidney Injury [ ] Acute Renal Failure [ ] Acute Kidney Injury w/ CKD [ ] ESRD [ ] Other, please specify [ ] Unable to determine Reference: KDIGO LORI Criteria: An increase in serum creatinine by greater than or equal to 0.3 mg/dL within 48 hours; An increase in serum creatinine by greater than or equal to 1.5 times baseline, which is known or presumed to have occurred within the prior 7 days; A urine volume less than 0.5 ml/kg/h for 6 hours. When the baseline is unknown the lowest creatinine during admission assumed to be baseline MTDD
== END 2022-09-19 15:57 | DRG 522 ==
LOC: EC 20:42 → 4SSUR 23:16 → 3SCARD 09-15 17:56
PROVIDERS: ADMIT Orthopaedic Surgery; ATTEND Orthopaedic Surgery
PROC: 5A09357 Assistance with Respiratory Ventilation, Less than 24 Consecutive Hours, Continuous Positive Airway Pressure (ICD-10-PCS; 2022-09-15)
PROC: 0SR9029 Replacement of Right Hip Joint with Metal on Polyethylene Synthetic Substitute, Cemented, Open Approach (ICD-10-PCS; principal; 2022-09-15 14:00)
DX: S72.011A Unspecified intracapsular fracture of right femur, initial encounter for closed fracture (principal); J44.1 Chronic obstructive pulmonary disease with (acute) exacerbation; J98.11 Atelectasis; G25.3 Myoclonus; N18.30 Chronic kidney disease, stage 3 unspecified; I13.10 Hypertensive heart and chronic kidney disease without heart failure, with stage 1 through stage 4 chronic kidney disease, or unspecified chronic kidney disease; S09.8XXA Other specified injuries of head, initial encounter; I48.91 Unspecified atrial fibrillation; D75.9 Disease of blood and blood-forming organs, unspecified; G31.9 Degenerative disease of nervous system, unspecified; I35.0 Nonrheumatic aortic (valve) stenosis; G47.33 Obstructive sleep apnea (adult) (pediatric); I25.10 Atherosclerotic heart disease of native coronary artery without angina pectoris; M48.02 Spinal stenosis, cervical region; E83.42 Hypomagnesemia; E87.6 Hypokalemia; N40.0 Benign prostatic hyperplasia without lower urinary tract symptoms; I45.10 Unspecified right bundle-branch block; R27.8 Other lack of coordination; I25.2 Old myocardial infarction; Z79.01 Long term (current) use of anticoagulants; Z79.899 Other long term (current) drug therapy; Z87.891 Personal history of nicotine dependence; Z86.718 Personal history of other venous thrombosis and embolism; Z95.5 Presence of coronary angioplasty implant and graft; Z86.73 Personal history of transient ischemic attack (TIA), and cerebral infarction without residual deficits; V86.99XA Unspecified occupant of other special all-terrain or other off-road motor vehicle injured in nontraffic accident, initial encounter; Y93.I9 Activity, other involving external motion; Y92.833 Campsite as the place of occurrence of the external cause; Z79.51 Long term (current) use of inhaled steroids
CPT/HCPCS: 36415; 64447; 70450; 70551; 71045; 71046; 72125; 72170; 73501; 80048; 80053; 80061; 83735; 85025; 85610; 85730; 86850; 86900; 86901; 88305; 88311; 93005; 93306; 93880; 94640; 94760; 95819; 96374; 96375; 99285